=== PATIENT | female | born 1940 | race Caucasian/White ===

== ENCOUNTER 2016-10-12 12:24 | Observation (INO) ==
--- NOTE | 2016-10-12 12:53 | Emergency Department Note ---
Disposition Clinical Impression: Compression fracture Disposition: Admitted As Inpatient Condition: Fair Referrals: Florinda Falk MD [Primary Care Provider] - Forms: ED Satisfaction Letter Time of Disposition: 13:56 Back Pain HPI - General Chief Complaint: ED Back Pain/Injury Stated Complaint: back pain Time Seen by Provider: 10/12/16 12:45 Source: patient Mode of arrival: ambulatory Limitations: no limitations Nursing Notes Reviewed: Yes Vital Signs Reviewed: Yes - History of Present Illness HPI Narrative: Patient seen yesterday at [facility] diagnosed with a compression fracture went home now is having increasing pain as result returns to our ER today for evaluation unclear whether patient filled her medication prescription for pain management or not is numbness tingling weakness loss of bowel or bladder control Pt Subjective Complaint: back pain Onset (ago): day(s) Duration: constant Similar Symptoms Previously: Yes Location: thoracic spine Pain Severity: severe Pain Scale: 10 Quality: aching Radiation: none Improves with: none Worsens with: movement, sitting upright, walking, deep breaths/cough Associated symptoms: Reports: difficulty walking. Denies: numbness, weakness, incontinence of bowel/bladder, fever, chills, abdominal pain, dysuria, hematuria - Related Data Home Medications Medication Instructions Recorded Confirmed Aspirin [Lo-Dose Aspirin EC] 81 mg PO DAILY 09/26/15 10/12/16 Atorvastatin Calcium [Lipitor] 40 mg PO DAILY 09/26/15 10/12/16 Clopidogrel [Plavix] 75 mg PO DAILY 09/26/15 10/12/16 Docusate Sodium [Dok] 100 mg PO DAILY 09/26/15 10/12/16 LORazepam [Lorazepam] 2 mg PO TID 09/26/15 10/12/16 Oxygen 2 l NS HS 09/26/15 10/12/16 BuPROPion [Wellbutrin] 75 mg PO DAILY 10/12/16 10/12/16 Dicyclomine [Bentyl] 10 mg PO TID 10/12/16 10/12/16 Furosemide [Lasix] 20 mg PO DAILY 10/12/16 10/12/16 Losartan [Cozaar] 50 mg PO BID 10/12/16 10/12/16 Previous Rx's Medication Instructions Recorded Carvedilol [Coreg] 6.25 mg PO BIDWM #60 tablet 07/26/16 Acetaminophen [Tylenol Arthritis] 650 mg PO Q4-6H PRN #20 tablet.er 10/11/16 Allergies Allergy/AdvReac Type Severity Reaction Status Date / Time aspirin Allergy See Verified 06/05/16 14:40 Comments atenolol Allergy See Verified 06/05/16 14:40 Comments Penicillins Allergy Swelling Verified 11/16/14 13:24 of Lip/Tongue/Throat tramadol Allergy See Verified 06/05/16 14:40 Comments acetaminophen [From Vicodin] AdvReac Nausea Verified 11/16/14 13:24 diazepam [From Valium] AdvReac Nausea Verified 11/16/14 13:24 hydrocodone [From Vicodin] AdvReac Nausea Verified 11/16/14 13:24 All systems ED: reviewed and negative except as stated. Review of Systems: As Per HPI Constitutional: Denies: fever, chills, weakness Eyes: Denies: eye pain ENT ED: Denies: ear pain Cardiovascular: Denies: chest pain Respiratory: Denies: cough Gastrointestinal: Denies: abdominal pain Genitourinary: Denies: urgency, dysuria Musculoskeletal: Reports: back pain Integumentary: Denies: rash, abrasion Neurological: Denies: headache Psychiatric: Denies: anxiety Endocrine: Denies: fatigue Hematological/Lymphatic: Denies: easy bleeding Allergic/Immunologic: Denies: facial swelling Past Medical History - Past Medical History Attestation: Yes The following information was validated with the patient. Source: patient, old records reviewed, nursing notes reviewed Medical history: Reports: asthma, CHF, COPD, hypertension Surgical history: Reports: , other (EGD. Colonoscopy.) Psychiatric history: Reports: anxiety, depression ORE FIELDER history: Reports: no ORE FIELDER history - Social History Smoking Status: Former smoker Smokeless Tobacco Status: No Alcohol use: Reports: none Drug use: Reports: none Physical Exam - General Limitations: no limitations General appearance: alert, in no apparent distress, anxious - Head Head exam: atraumatic, normocephalic, normal inspection - Eye Eye exam: Present: normal appearance, PERRL, EOMI - ENT ENT exam: normal exam, normal oropharynx, mucous membranes moist, normal external ear exam - Neck Neck exam: Present: normal inspection, full ROM, trachea midline - Chest Chest inspection: Present: normal inspection, symmetric chest wall rise - Respiratory Respiratory exam: Present: normal lung sounds bilaterally - Cardiovascular Cardiovascular exam: Present: regular rate, normal rhythm, normal heart sounds - Abdominal Exam Abdominal exam: Present: Non-Tender, normal bowel sounds. Absent: mass, pulsatile mass - Expanded Upper Extremity Exam Shoulder exam: Present: normal inspection, full ROM Arm exam: Present: normal inspection, full ROM Elbow exam: Present: normal inspection, full ROM Forearm/Wrist exam: Present: normal inspection, full ROM Hand exam: Present: normal inspection, full ROM Vascular exam: Normal: capillary refill, radial pulse - Expanded Lower Extremity Exam Hip/Pelvis exam: Present: normal inspection, full ROM Upper leg exam: Present: normal inspection, full ROM Knee exam: Present: normal inspection, full ROM Lower leg exam: Present: normal inspection, full ROM Ankle exam: Present: normal inspection, full ROM Foot/toe exam: Present: normal inspection, full ROM Neurovascular/Tendon exam: Present: normal capillary refill, normal fine/light touch. Absent: motor deficit, sensory deficit, tendon deficit Gait: unable to bear weight - Back Exam Back exam: Present: normal inspection, tenderness, muscle spasm, vertebral tenderness Back 1 view image: 1 - pain - Neurological Exam Neurological exam: Present: alert, oriented X3, CN II-XII intact - Psychiatric Psychiatric exam: Present: normal affect, normal mood, agitated (due to pain) - Skin Skin exam: Present: warm, dry, intact, normal color Course Course Narrative: Seen and examined CT performed as a result patient will be admitted because of intractable pain transfered to [facility] Vital Signs Temperature 98.4 F 10/12/16 12:28 Pulse Rate 69 10/12/16 12:28 Respiratory Rate 16 10/12/16 12:28 Blood Pressure 167/97 10/12/16 12:28 O2 Sat by Pulse Oximetry 98 10/12/16 12:28 Temperature 98.4 F 10/12/16 12:28 Pulse Rate 69 10/12/16 12:28 Respiratory Rate 16 10/12/16 12:28 Blood Pressure 167/97 10/12/16 12:28 O2 Sat by Pulse Oximetry 98 10/12/16 12:28 Oxygen Delivery Oxygen Delivery Nasal Cannula Back Pain/Injury - Differential Diagnosis Differential Diagnosis: Likely: lumbar radiculopathy, strain of lumbar region - Medical Records Medical records reviewed: Yes I reviewed the patient's medical records. - Radiology Data Radiology results reviewed: Yes I reviewed the patient's radiology results. ITS Impressions Thoracic Spine CT 10/12/16 12:44 IMPRESSION: No acute abnormality of the thoracic spine. Unchanged compression fractures of T8 and L1. D/ / Lenny Negro MD / Lenny Negro MD Interpreting Provider: Lenny Negro MD Critical Care Time Critical Care Time: No
[2016-10-12] MEDS ORDERED: Ondansetron 4 MG/2 ML VIAL IVP ONE (13:54)
[2016-10-12] MEDS ORDERED: *HR* HYDROmorphone (PF) 1 MG/ML SYRINGE IVP ONE (13:54)
[2016-10-12] MEDS ORDERED: Orphenadrine 60 MG/2 ML VIAL IM ONE (13:54)
[2016-10-12] MEDS ORDERED: *HR* HYDROmorphone (PF) 1 MG/ML SYRINGE IVP PRN ×2 (15:20→17:13)
[2016-10-12] MEDS ORDERED: Ondansetron 4 MG/2 ML VIAL IVP PRN (15:20)
[2016-10-12] MEDS ORDERED: Naloxone 0.4 MG/ML INJ IVP PRN (15:20)
[2016-10-12] MEDS ORDERED: Acetaminophen 325 MG TABLET PO PRN (15:20)
[2016-10-12 15:49] LABS: Basophils % 0.5 %; Eosinophils # 0.1 K/mcL (0.0-0.6); Eosinophils % 1.8 %; Hematocrit 33.5 % (35.3-44.9); Hemoglobin 11.2 g/dL (11.5-15.4); Immature Granulocytes % 0.2 % (0-4); Lymphocytes # 1.1 K/mcL (0.6-4.6); Lymphocytes % 19.7 %; Mean Corpuscular HGB Conc 33.4 g/dL (31.6-35.5); Mean Corpuscular Volume 89.8 fL (83.0-100.0); Mean Platelet Volume 9.4 fL (9.4-12.4); Monocytes # 0.4 K/mcL (0.0-1.3); Monocytes % 6.9 %; Platelet Count 122 K/mcL (140-400); Red Blood Count 3.73 M/mcL (3.82-4.97); Red Cell Distribution Width 12.1 % (11.5-14.5); Segmented Neutrophils % 70.9 %
[2016-10-12 15:50] LABS: INR 1.2; Prothrombin Time 12.6 Seconds (9.4-12.1)
[2016-10-12 15:59] LABS: BUN/Creatinine Ratio 14 (6-26); Blood Urea Nitrogen 11 mg/dL (7-20); Calcium 9.1 mg/dL (8.6-10.8); Carbon Dioxide 32 mEq/L (19-29); Chloride 102 mEq/L (98-109); Glucose 88 mg/dL (70-99); Osmolality,Calculated 293 (280-300); Sodium 142 mEq/L (136-145); eGFR For African Americans > 60 (> 60); eGFR For Non-African Americans > 60 (> 60)
[2016-10-12] MEDS: *HR* LORazepam 1 MG TABLET PO SCH ×2 (16:19→19:33)
--- NOTE | 2016-10-12 17:23 | Internal Med History&Physical ---
Date of Encounter: 10/12/16 Time of Encounter: 16:35 Assessment and Plan (1) Thoracic back pain Current visit: No Status: Acute She will be given oral and topical analgesics with muscle relaxers. Further workup will be done as needed. Qualifiers: Chronicity: acute Back pain laterality: bilateral Qualified Code(s): M54.6 - Pain in thoracic spine Internal Medicine - H&P: HPI Chief complaint: Back pain Admitted From: Home Plans for Post Hospital Care: Home History of present illness: Ms. Hill is a 76 year old female who came to emergency room stating she had worsening back pain onset earlier the previous day. She states the pain occurred when she was lifting a bucket of water. There was no significant radiation. She went to [facility] emergency room was treated and released after thoracic spine x-ray showed no acute changes. She states Tylenol did not significantly lessen the pain. She came to [facility] emergency room and CT scan of the thoracic spine was done and showed stable old compression fractures of T8 and L1. It was felt she deserved admission for pain management. She denies previous similar episodes of pain. 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 She denies significant arthritis gout other bone joint or muscle disorders. Past Med Surg Social Fam HX - Past Medical History Medical history: asthma, CHF, COPD, hypertension Psychiatric history: anxiety, depression - Past Surgical History Surgical History: , other - Social History Smoking Status: Former smoker Smokeless Tobacco Status: No Alcohol use: none Drug use: none - Family History Mother Living Status: Hx Family Cardiac Disorders: Yes Hx Family Cancer: Yes Father Living Status: Hx Family Cardiac Disorders: Yes Hx Family GI Disorders: Yes Internal Medicine - H&P: Meds Aspirin [Lo-Dose Aspirin EC] 81 mg PO DAILY 09/26/15 [History] Atorvastatin Calcium [Lipitor] 40 mg PO DAILY 09/26/15 [History] Clopidogrel [Plavix] 75 mg PO DAILY 09/26/15 [History] Docusate Sodium [Dok] 100 mg PO DAILY 09/26/15 [History] LORazepam [Lorazepam] 2 mg PO TID 09/26/15 [History] Oxygen 2 l NS HS 09/26/15 [History] Carvedilol [Coreg] 6.25 mg PO BIDWM #60 tablet 09/27/15 [Rx] Acetaminophen [Tylenol Arthritis] 650 mg PO Q4-6H PRN #20 tablet.er 10/11/16 [Rx ] BuPROPion [Wellbutrin] 75 mg PO DAILY 10/12/16 [History] Dicyclomine [Bentyl] 10 mg PO TID 10/12/16 [History] Furosemide [Lasix] 20 mg PO DAILY 10/12/16 [History] Losartan [Cozaar] 50 mg PO BID 10/12/16 [History] Allergies aspirin Allergy (Verified 06/05/16 14:40) See Comments atenolol Allergy (Verified 06/05/16 14:40) See Comments Penicillins Allergy (Verified 11/16/14 13:24) Swelling of Lip/Tongue/Throat tramadol Allergy (Verified 06/05/16 14:40) See Comments acetaminophen [From Vicodin] Adverse Reaction (Verified 11/16/14 13:24) Nausea diazepam [From Valium] Adverse Reaction (Verified 11/16/14 13:24) Nausea hydrocodone [From Vicodin] Adverse Reaction (Verified 11/16/14 13:24) Nausea All Systems PM: A 10-system review of systems was performed and is negative for pertinent findings except as documented above in the HPI. Review of systems: Gen.: She states her weight has been stable past few months Cardiovascular: She has history of hypertension but denies NC heart failure angina DVT or pulmonary embolus Respiratory: She smoked from age [age]. She claims diagnoses of COPD/emphysema and asthma. She uses oxygen at bedtime and when necessary during the daytime GI: She has IBS. She denies disorders of her liver gallbladder or exocrine pancreas : She denies hematuria dysuria or kidney stones Neurologic: She states she had a stroke in the past but only affected her left forehead/eyebrow movement. She denies seizures Endocrine: She has hyperlipidemia but denies diabetes or thyroid disease Hematology/oncology: she denies blood disorders cancers or anemia Psychiatric: She has anxiety and depression Musk skeletal: As per history of present illness - Constitutional Vitals: Temp Pulse Resp BP Pulse Ox 97.9 F 60 16 174/78 98 10/12/16 15:20 10/12/16 15:20 10/12/16 15:20 10/12/16 15:20 10/12/16 15:20 Exam: Gen.: She is well-developed well-nourished female appears in no acute distress at present time HEENT: Head is atraumatic and normocephalic. Eyes: EOMI. There is no scleral icterus. Mouth: Mucosa is moist. Neck: Supple and nontender. There is no thyromegaly or adenopathy noted. Heart: Regular without murmurs gallops or ectopics Lungs: No wheezes or crackles are heard Abdomen: Soft and nontender. No masses or guarding are noted. Extremities: There is no cyanosis or edema of her legs. 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 Right hand shows DJD changes. Neurologic: Mental status: She is talkative and a good historian. Cranial nerves: Smile is symmetric. Forehead wrinkles bilaterally. Tongue protrudes midline. EOMI. Motor: There is no pronator drift. Cerebellar: Finger to nose is intact bilaterally. Skin: Warm and dry Internal Med - H&P Results - Labs CBC & Chem 7: 10/12/16 15:32 10/12/16 15:32 Labs: Short CBC 10/12/16 Range/Units 15:32 WBC 5.6 (4.3-11.1) K/mcL Hgb 11.2 L (11.5-15.4) g/dL Hct 33.5 L (35.3-44.9) % Plt Count 122 L (140-400) K/mcL Neutrophils # 4.0 (1.6-8.9) K/mcL BMP 10/12/16 15:32 Sodium 142 Potassium 4.0 Chloride 102 Carbon Dioxide 32 H BUN 11 Creatinine 0.81 Glucose 88 Calcium 9.1
[2016-10-12] MEDS: Methyl Salicylate/Menthol 28 GM TUBE TP SCH (19:29)
[2016-10-12] MEDS: Baclofen 10 MG TABLET PO SCH (19:33)
[2016-10-12] MEDS ORDERED: NON-FORMULARY MEDICATION 1 EACH EACH (Oxygen [Oxygen] 2 L) NS SCH (21:00)
[2016-10-13] MEDS: Baclofen 10 MG TABLET PO SCH ×4 (02:35→22:33)
[2016-10-13] MEDS: *HR* LORazepam 1 MG TABLET PO SCH ×4 (08:07→22:32)
[2016-10-13] MEDS: Furosemide 20 MG TABLET PO SCH (08:10)
[2016-10-13] MEDS: Methyl Salicylate/Menthol 28 GM TUBE TP SCH ×2 (08:28→22:35)
--- NOTE | 2016-10-13 08:59 | Discharge Summary ---
Date of Encounter: 10/13/16 Time of Encounter: 08:50 - Discharge Diagnosis (1) Thoracic back pain Priority: Primary Status: Acute Qualifiers: Chronicity: acute Back pain laterality: bilateral Qualified Code(s): M54.6 - Pain in thoracic spine - Discharge Medications Prescriptions: Baclofen [Lioresal] 10 mg PO TID #15 tab HYDROcodone/Acet 5/325 mg [Salix 5-325 mg] 1 tab PO Q4H PRN #12 tab PRN Reason: Pain Lidocaine Patch [Lidoderm 5% patch] 1 each TP DAILY #5 Naproxen [Naprosyn] 500 mg PO BIDWM #10 tab Home Medications: Aspirin [Lo-Dose Aspirin EC] 81 mg PO DAILY 09/26/15 [History] Atorvastatin Calcium [Lipitor] 40 mg PO DAILY 09/26/15 [History] Clopidogrel [Plavix] 75 mg PO DAILY 09/26/15 [History] Docusate Sodium [Dok] 100 mg PO DAILY 09/26/15 [History] LORazepam [Lorazepam] 2 mg PO TID 09/26/15 [History] Oxygen 2 l NS HS 09/26/15 [History] Carvedilol [Coreg] 6.25 mg PO BIDWM #60 tablet 09/27/15 [Rx] Acetaminophen [Tylenol Arthritis] 650 mg PO Q4-6H PRN #20 tablet.er 10/11/16 [Rx ] BuPROPion [Wellbutrin] 75 mg PO DAILY 10/12/16 [History] Dicyclomine [Bentyl] 10 mg PO TID 10/12/16 [History] Furosemide [Lasix] 20 mg PO DAILY 10/12/16 [History] Losartan [Cozaar] 50 mg PO BID 10/12/16 [History] Baclofen [Lioresal] 10 mg PO TID #15 tab 10/13/16 [Rx] HYDROcodone/Acet 5/325 mg [Salix 5-325 mg] 1 tab PO Q4H PRN #12 tab 10/13/16 [Rx ] Lidocaine Patch [Lidoderm 5% patch] 1 each TP DAILY #5 10/13/16 [Rx] Methyl Salicylate/Menthol [Bengay] 1 appl TP BID 10/13/16 [Rx] Naproxen [Naprosyn] 500 mg PO BIDWM #10 tab 10/13/16 [Rx] Allergies/Adverse Reactions: Allergies aspirin Allergy (Verified 06/05/16 14:40) See Comments atenolol Allergy (Verified 06/05/16 14:40) See Comments Penicillins Allergy (Verified 11/16/14 13:24) Swelling of Lip/Tongue/Throat tramadol Allergy (Verified 06/05/16 14:40) See Comments acetaminophen [From Vicodin] Adverse Reaction (Verified 11/16/14 13:24) Nausea diazepam [From Valium] Adverse Reaction (Verified 11/16/14 13:24) Nausea hydrocodone [From Vicodin] Adverse Reaction (Verified 11/16/14 13:24) Nausea Date of admission: 10/12/16 14:13 Primary care physician: Florinda Falk, - Patient Status Disposition: Home, Self-Care Condition: Fair Overall status at discharge: patient is progressing back to baseline - Discharge Instructions Follow Up With: Florinda Falk MD [Primary Care Provider] - 1 week - Diet and Activity Activity: resume usual activities as tolerated Diet: advance to your usual diet Hospital course: Ms. Hill is a 76 year old female who came to emergency room stating she had worsening back pain onset earlier the previous day. She states the pain occurred when she was lifting a bucket of water. There was no significant radiation. She went to [facility] emergency room was treated and released after thoracic spine x-ray showed no acute changes. She states Tylenol did not significantly lessen the pain. She came to [facility] emergency room and CT scan of the thoracic spine was done and showed stable old compression fractures of T8 and L1. It was felt she deserved admission for pain management. Initial orders were written by the emergency room physician. I saw her on October 12 and performed a history and physical. She was ordered scheduled baclofen and Naprosyn. BenGay and Lidoderm were applied topically. She had slight improvement in the pain and on October 12 I felt she was stable for discharge home. She states she did not really have an allergy to hydrocodone so I will prescribe Salix 5/325 when necessary. She will follow with her PCP Dr. Falk within 1 week. - Time Spent with Patient Total time spent providing and/or coordinating discharge services: - Constitutional Vitals: Temp Pulse Resp BP Pulse Ox 98.0 F 71 20 155/82 99 10/13/16 08:00 10/13/16 08:00 10/13/16 08:00 10/13/16 08:00 10/13/16 08:04
[2016-10-13] MEDS ORDERED: Aspirin Enteric Coated 81 MG Tablet PO SCH (09:00)
[2016-10-13] MEDS ORDERED: *HR* HYDROcodone/Acet 5/325 mg TABLET PO ONE (09:03)
[2016-10-13] MEDS: Acetaminophen 325 MG TABLET PO SCH (17:47)
[2016-10-13] MEDS ORDERED: *HR* FentaNYL PATCH 12 MCG PATCH TD SCH (18:00)
[2016-10-14] MEDS: Acetaminophen 325 MG TABLET PO SCH ×2 (03:59→06:36)
[2016-10-14] MEDS ORDERED: amLODIPine 5 MG TABLET PO ONE (04:20)
[2016-10-14 09:08] VITALS: BP 136/78
[2016-10-14] MEDS: *HR* LORazepam 1 MG TABLET PO SCH (09:09)
[2016-10-14] MEDS: Furosemide 20 MG TABLET PO SCH (09:10)
[2016-10-14] MEDS: Baclofen 10 MG TABLET PO SCH (09:10)
[2016-10-14] MEDS: Methyl Salicylate/Menthol 28 GM TUBE TP SCH (09:15)
--- NOTE | 2016-10-14 09:41 | Physician Discharge Referral ---
Home Health/Hosp Referral Info Transfer to: Home Health Attending Provider: Davis Provider in Charge Post Discharge: PCP (Florinda Falk M.D.) - Diagnosis (1) Thoracic back pain Priority: Primary Status: Acute - Respiratory Orders Smoking Cessation: Smoking cessation has been advised. For more information, call the [place] Tobacco Quit Line at 8-280-DQGB-NOW. - Diet/Nutrition Diet/Nutrition Orders: Regular - Activity Activity Orders: Up ad sun - Services Needed Following services are medically necessary services: Nursing, Home Health Aide, Physical Therapy, Occupational Therapy - Transfer Medications Prescriptions: Baclofen [Lioresal] 10 mg PO TID #15 tab HYDROcodone/Acet 5/325 mg [Brimson 5-325 mg] 1 tab PO Q4H PRN #12 tab PRN Reason: Pain Lidocaine Patch [Lidoderm 5% patch] 1 each TP DAILY #5 Naproxen [Naprosyn] 500 mg PO BIDWM #10 tab Home Medications: Aspirin [Lo-Dose Aspirin EC] 81 mg PO DAILY 09/26/15 [History] Atorvastatin Calcium [Lipitor] 40 mg PO DAILY 09/26/15 [History] Clopidogrel [Plavix] 75 mg PO DAILY 09/26/15 [History] Docusate Sodium [Dok] 100 mg PO DAILY 09/26/15 [History] LORazepam [Lorazepam] 2 mg PO TID 09/26/15 [History] Oxygen 2 l NS HS 09/26/15 [History] Carvedilol [Coreg] 6.25 mg PO BIDWM #60 tablet 09/27/15 [Rx] Acetaminophen [Tylenol Arthritis] 650 mg PO Q4-6H PRN #20 tablet.er 10/11/16 [Rx ] BuPROPion [Wellbutrin] 75 mg PO DAILY 10/12/16 [History] Dicyclomine [Bentyl] 10 mg PO TID 10/12/16 [History] Furosemide [Lasix] 20 mg PO DAILY 10/12/16 [History] Losartan [Cozaar] 50 mg PO BID 10/12/16 [History] Baclofen [Lioresal] 10 mg PO TID #15 tab 10/13/16 [Rx] HYDROcodone/Acet 5/325 mg [Brimson 5-325 mg] 1 tab PO Q4H PRN #12 tab 10/13/16 [Rx ] Lidocaine Patch [Lidoderm 5% patch] 1 each TP DAILY #5 10/13/16 [Rx] Methyl Salicylate/Menthol [Bengay] 1 appl TP BID 10/13/16 [Rx] Naproxen [Naprosyn] 500 mg PO BIDWM #10 tab 10/13/16 [Rx] Allergies/Adverse Reactions: Allergies aspirin Allergy (Verified 06/05/16 14:40) See Comments atenolol Allergy (Verified 06/05/16 14:40) See Comments Penicillins Allergy (Verified 11/16/14 13:24) Swelling of Lip/Tongue/Throat tramadol Allergy (Verified 06/05/16 14:40) See Comments acetaminophen [From Vicodin] Adverse Reaction (Verified 11/16/14 13:24) Nausea diazepam [From Valium] Adverse Reaction (Verified 11/16/14 13:24) Nausea hydrocodone [From Vicodin] Adverse Reaction (Verified 11/16/14 13:24) Nausea Certification: Further, I certify that my clinical findings support that this patient is homebound (i.e. absences from home require considerable and taxing effort and are for medical reasons or [employer] services or infrequently or short duration when for other reasons) because: Homebound Reason: Leaving home requires considerable and taxing effort due to condition (Severe back pain) Attestation: My signature below is to certify that this patient is under my care and that I, or nurse practitioner, or a physician's pharmaceutical assistant working with me, has a face-to -face encounter with this patient.
== END 2016-10-14 13:15 | disposition home health service (06) ==
LOC: EMEROOPIK 12:24 → INPPIK 12:24
PROVIDERS: ADMIT Internal Medicine; ATTEND Internal Medicine

== ENCOUNTER 2018-04-17 20:01 | Inpatient (IN) ==
[2018-04-17 20:38] LABS: Basophils % 0.3 %; Eosinophils # 0.1 K/mcL (0.0-0.6); Eosinophils % 0.8 %; Hematocrit 32.8 % (35.3-44.9); Hemoglobin 10.5 g/dL (11.5-15.4); Immature Granulocytes % 0.4 % (0-4); Lymphocytes # 0.5 K/mcL (0.6-4.6); Lymphocytes % 6.5 %; Mean Corpuscular Hemoglobin 29.2 pg (28.0-33.3); Mean Corpuscular Volume 91.1 fL (83.0-100.0); Mean Platelet Volume 9.7 fL (9.4-12.4); Monocytes # 0.4 K/mcL (0.0-1.3); Monocytes % 5.2 %; Neutrophils # 6.9 K/mcL (1.6-8.9); Platelet Count 158 K/mcL (140-400); Red Cell Distribution Width 12.8 % (11.5-14.5); Segmented Neutrophils % 86.8 %
[2018-04-17 20:48] LABS: INR 1.2; Prothrombin Time 13.4 Seconds (9.4-12.1)
[2018-04-17 20:50] LABS: Activated Partial Thrombo Time 32.6 Seconds (26.0-36.0)
[2018-04-17 20:57] LABS: Alanine Aminotransferase 7 Units/L (7-52); Albumin 3.5 g/dL (3.5-5.7); Albumin/Globulin Ratio 1.5 (1.1-2.2); Alkaline Phosphatase 64 Units/L (34-104); Aspartate Amino Transferase 11 Units/L (13-39); BUN/Creatinine Ratio 14 (6-26); Bilirubin,Total 0.7 mg/dL (0.3-1.0); Blood Urea Nitrogen 14 mg/dL (8-23); Calcium 8.6 mg/dL (8.6-10.3); Carbon Dioxide 28 mEq/L (23-29); Chloride 103 mEq/L (98-107); Globulin 2.4 g/dL (2.4-3.5); Glucose 118 mg/dL (70-105); Osmolality,Calculated 290 (280-300); Potassium 3.6 mEq/L (3.5-5.1); Sodium 139 mEq/L (136-145); Total Protein 5.9 g/dL (6.4-8.9); eGFR For Non-African Americans 55 (> 60)
[2018-04-17] MEDS ORDERED: Levofloxacin 750 MG/150 ML 750 MG/150 ML BAG IVPB ONE (21:34)
--- NOTE | 2018-04-17 21:34 | Emergency Department Note ---
Disposition Clinical Impression: Congestive heart failure, Community acquired pneumonia, COPD (chronic obstructive pulmonary disease) Disposition: Admitted As Inpatient Condition: Fair Referrals: NONE,PCP [Non-Partnered Physician] - Time of Disposition: 22:23 SOB HPI - General Chief Complaint: ED Shortness of Breath/Dyspnea Stated Complaint: Dyspnea onset 3-4 days, worse today Time Seen by Provider: 04/17/18 20:05 Source: patient Mode of arrival: ambulatory Limitations: no limitations Nursing Notes Reviewed: Yes Vital Signs Reviewed: Yes - History of Present Illness 77-year-old who presents to the emergency room is having increasing shortness of breath weakness tiredness having trouble getting around in the house she denies any blurred vision double vision loss vision she's had near-syncope she's had no rash other than she's had no focal lesions she denies any fevers or chills as far she can tell she Center hearts been racing she is been seen by the sleeping room cleaner who said she she's has a pacer defibrillator but she doesn't understand what those are she denies diarrhea melena hematochezia hematemesis numbness tingling weakness focally noted that is more global she denies any abdominal pain or discomfort all systems have been reviewed and are otherwise negative Pt Subjective Complaint: shortness of breath Onset (ago): day(s) Consistency/Duration: constant Improves with: nothing Worsens with: nothing Known history of: COPD, congestive heart failure Associated symptoms: Reports: diaphoresis. Denies: chest pain, pain with inspiration, fever, cough, wheezing, sputum production, orthopnea, lower extremity pain, polyuria, polydipsia, parasthesias, palpitations, hemoptysis, nausea/vomiting, syncope, abdominal pain, rash, sense of impending doom Treatment prior to arrival: none - Related Data Home Medications Medication Instructions Recorded Confirmed Aspirin [Lo-Dose Aspirin EC] 81 mg PO DAILY 09/26/15 04/17/18 Atorvastatin Calcium [Lipitor] 40 mg PO DAILY 09/26/15 04/17/18 Docusate Sodium [Dok] 100 mg PO DAILY 09/26/15 04/17/18 LORazepam [Lorazepam] 2 mg PO TID 09/26/15 04/17/18 Oxygen 2 l NS HS 09/26/15 04/17/18 BuPROPion [Wellbutrin] 75 mg PO DAILY 10/12/16 04/17/18 Albuterol Sulfate [Ventolin Hfa] 2 puff IH Q6H PRN 03/07/18 04/17/18 Budesonide/Formoterol 160/4.5 2 puff IH BIDR 04/17/18 04/17/18 [Symbicort 160/4.5] Previous Rx's Medication Instructions Recorded Acetaminophen [Tylenol Arthritis] 650 mg PO Q4-6H PRN #20 tablet.er 10/11/16 Methyl Salicylate/Menthol [Bengay] 1 appl TP BID 10/13/16 Fluticasone Propionate Nasal 1 - 2 spray NS DAILY PRN #1 bottle 12/20/17 [Flonase] Metoprolol XL (24 HR) Succ [Toprol 12.5 mg PO DAILY #30 tab.er.24h 03/14/18 Xl] Allergies Allergy/AdvReac Type Severity Reaction Status Date / Time atenolol Allergy See Verified 12/20/17 14:18 Comments Penicillins Allergy Swelling Verified 12/20/17 14:18 of Lip/Tongue/Throat tramadol Allergy See Verified 12/20/17 14:18 Comments acetaminophen [From Vicodin] AdvReac Nausea Verified 12/20/17 14:18 diazepam [From Valium] AdvReac Nausea Verified 12/20/17 14:18 hydrocodone [From Vicodin] AdvReac Nausea Verified 12/20/17 14:18 All systems ED: reviewed and negative except as stated. Review of Systems: As Per HPI Constitutional: Reports: weakness. Denies: fever, chills Eyes: Denies: eye pain, eye discharge, vision change ENT ED: Denies: ear pain, throat pain Cardiovascular: Reports: palpitations, dyspnea on exertion. Denies: chest pain, syncope, paroxysmal nocturnal dyspnea Respiratory: Reports: dyspnea, wheezes, sputum production Gastrointestinal: Denies: abdominal pain, nausea Genitourinary: Denies: urgency, dysuria, frequency Musculoskeletal: Denies: back pain, neck pain Integumentary: Denies: rash, abrasion Neurological: Denies: headache Psychiatric: Denies: anxiety Endocrine: Denies: fatigue Hematological/Lymphatic: Denies: easy bleeding Allergic/Immunologic: Denies: facial swelling Past Medical History - Past Medical History Attestation: Yes The following information was validated with the patient. Source: patient, old records reviewed, nursing notes reviewed Medical history: Reports: atrial fibrillation, COPD, CVA, GERD, hypertension Surgical history: Reports: , other Psychiatric history: Reports: anxiety, depression [employer] history: Reports: no [employer] history - Social History Smoking Status: Current every day smoker Smokeless Tobacco Status: No Alcohol use: Reports: none Drug use: Reports: none Physical Exam - General Limitations: no limitations General appearance: alert, in no apparent distress, anxious - Head Head exam: atraumatic, normocephalic, normal inspection - Eye Eye exam: Present: normal appearance, PERRL, EOMI - ENT ENT exam: normal exam, normal oropharynx, mucous membranes moist, TM's normal bilaterally, normal external ear exam - Neck Neck exam: Present: normal inspection, full ROM, trachea midline - Chest Chest inspection: Present: normal inspection, symmetric chest wall rise - Respiratory Respiratory exam: Present: normal lung sounds bilaterally - Cardiovascular Cardiovascular exam: Present: tachycardia, irregular rhythm, normal heart sounds - Abdominal Exam Abdominal exam: Present: soft, Non-Tender, normal bowel sounds. Absent: mass, pulsatile mass - Extremities Exam Extremities exam: Present: normal inspection, full ROM, normal capillary refill. Absent: tenderness, pedal edema, joint swelling, calf tenderness - Expanded Lower Extremity Exam Neurovascular/Tendon exam: Present: normal capillary refill, normal fine/light touch Gait: observed and normal - Back Exam Back exam: Present: normal inspection, full ROM. Absent: muscle spasm - Neurological Exam Neurological exam: Present: alert, oriented X3, CN II-XII intact, normal gait - Psychiatric Psychiatric exam: Present: normal affect, normal mood - Skin Skin exam: Present: warm, dry, intact, normal color Course Course Narrative: She's had problems in the past which they have questioned whether to give her pacemaker because of bradycardia she describes so that they were giving her a dual-chamber pacemaker or a pacer defibrillator as result Shortness of Breath/Dyspnea - Differential Diagnosis Likely: congestive heart failure, pneumonia - Medical Records Medical records reviewed: Yes I reviewed the patient's medical records. - Lab Data Lab results reviewed: Yes I reviewed the patient's lab results. - Radiology Data Radiology results reviewed: Yes I reviewed the patient's radiology results. ITS Impressions Chest X-Ray 04/17/18 20:18 IMPRESSION: Bilateral lower lobe airspace opacification suggesting bilateral lower lobe pneumonia D/ / Rico Welch MD / Rico Welch MD Interpreting Provider: Rico Welch MD - EKG Data EKG attestation: Yes I reviewed and interpreted this EKG. EKG results narrative: Atrial fib with RVR sight prolongation in QT heart rate 1.1. 35 QT 351 axis -46 Critical Care Time Critical Care Time: Yes Attestation: 35 minutes high probability clinically significant life-threatening deterioration as result patient being in atrial fib with RVR which unfortunately has put her into congestive heart failure with an overlying pneumonia as result though this does increase her risk of comorbidities complications Davis and agreed for admission
[2018-04-17] MEDS ORDERED: Bumetanide 1 MG/4 ML VIAL IVP ONE (21:38)
[2018-04-17 21:47] LABS: Troponin I 0.07 ng/mL (< 0.04)
[2018-04-17] MEDS ORDERED: *HR* Metoprolol 5 MG/5 ML VIAL IVP ONE (21:59)
[2018-04-17] MEDS ORDERED: Fluticasone Propionate Nasal 50 MCG/SPRAY BOTTLE NS PRN (23:03)
[2018-04-17] MEDS ORDERED: Naloxone 0.4 MG/ML INJ IVP PRN (23:03)
[2018-04-18] MEDS ORDERED: Acetaminophen 325 MG TABLET PO PRN (01:14)
[2018-04-18] MEDS: *HR* LORazepam 1 MG TABLET PO SCH ×3 (08:37→22:08)
[2018-04-18] MEDS: Aspirin 81 MG TAB.CHEW PO SCH (08:38)
[2018-04-18] MEDS: Bumetanide 1 MG/4 ML VIAL IVP SCH ×3 (08:38→15:26)
[2018-04-18] MEDS ORDERED: Metoprolol XL (24 HR) Succ 25 MG TAB.ER.24H PO SCH (09:00)
[2018-04-18] MEDS: Budesonide/Formoterol 160/4.5 1 PUFF INH IH SCH ×2 (09:05→21:37)
--- NOTE | 2018-04-18 13:41 | Internal Med History&Physical ---
Date of Encounter: 04/18/18 Time of Encounter: 13:10 Assessment and Plan (1) Community acquired pneumonia Current visit: Yes Status: Acute She was started on Levaquin in emergency room. Lactobacillus will be added. Qualifiers: Laterality: unspecified laterality Qualified Code(s): J18.9 - Pneumonia, unspecified organism (2) Congestive heart failure Current visit: Yes Status: Chronic Toprol-XL dose will be increased to 25 mg daily. IV Bumex has been ordered. She will be started on low-dose lisinopril. Qualifiers: Heart failure type: combined systolic and diastolic Heart failure chronicity: acute on chronic Qualified Code(s): I50.43 - Acute on chronic combined systolic (congestive) and diastolic (congestive) heart failure (3) Cardiomyopathy Current visit: No Status: Chronic As above Qualifiers: Cardiomyopathy type: other Qualified Code(s): I42.8 - Other cardiomyopathies (4) Anemia Current visit: Yes Status: Acute Anemia testing will be ordered in a.m. Qualifiers: Anemia type: unspecified type Qualified Code(s): D64.9 - Anemia, unspecified (5) COPD (chronic obstructive pulmonary disease) Current visit: Yes Status: Chronic Continue Symbicort with prn albuterol nebs. Pneumonia treatment as per above. Qualifiers: COPD type: unspecified COPD Qualified Code(s): J44.9 - Chronic obstructive pulmonary disease, unspecified Internal Medicine - H&P: HPI Chief complaint: Dyspnea, near syncope Admitted From: Emergency Dept Plans for Post Hospital Care: Home History of present illness: Ms. Hill is a 77 year old female who came to emergency room stating she had one week history of increasing dyspnea. She reports cough productive of white sputum. She denies significant pain. She states she had a near syncopal episode at home yesterday. She came to emergency room and was evaluated and was felt to have exacerbation of COPD with CHF and possible pneumonia. She was admitted to [facility] floor for ongoing care needs. Cardiovascular history is significant for hypertension. She claims she had an [place] in 2014. C 03/12/2018 showed LMCA free of disease, 25% stenosis in proximal LAD, 20% stenosis in mid LAD, 25% stenosis in mid RCA, and 65% stenosis in distal RCA. The circumflex and first marginal were free of disease. No intervention was done. Echocardiogram 03/09/2018 showed LVEF of 45%. There was indeterminate diastolic function reported. E/A ratio was 0.5. There was mild aortic regurgitation, mild tricuspid vegetation, mild pulmonic regurgitation, and mild to moderate mitral regurgitation. Interventricular septum and posterior wall thickness measurements was 0.88 and 0.5 cm respectively. She denies DVT or pulmonary embolus. Respiratory history significant for having smoked from age [age]. She claims diagnosis of COPD/emphysema and asthma. She uses oxygen 24/09. Past Med Surg Social Fam HX - Past Medical History Medical history: atrial fibrillation, COPD, CVA, GERD, hypertension Additional medical history: IBS, emphysema Psychiatric history: anxiety, depression - Past Surgical History Surgical History: , other Additional surgical history: Jaw fx - Social History Smoking Status: Current every day smoker Smokeless Tobacco Status: No Alcohol use: none Drug use: none - Family History Mother Living Status: Hx Family Cardiac Disorders: Yes Hx Family Cancer: Yes Father Living Status: Hx Family Cardiac Disorders: Yes Hx Family GI Disorders: Yes Internal Medicine - H&P: Meds Aspirin [Lo-Dose Aspirin EC] 81 mg PO DAILY 09/26/15 [History] Atorvastatin Calcium [Lipitor] 40 mg PO DAILY 09/26/15 [History] Docusate Sodium [Dok] 100 mg PO DAILY 09/26/15 [History] LORazepam [Lorazepam] 2 mg PO TID 09/26/15 [History] Oxygen 2 l NS HS 09/26/15 [History] Acetaminophen [Tylenol Arthritis] 650 mg PO Q4-6H PRN #20 tablet.er 10/11/16 [Rx] BuPROPion [Wellbutrin] 75 mg PO DAILY 10/12/16 [History] Methyl Salicylate/Menthol [Bengay] 1 appl TP BID 10/13/16 [Rx] Fluticasone Propionate Nasal [Flonase] 1 - 2 spray NS DAILY PRN #1 bottle 12/20/17 [Rx] Albuterol Sulfate [Ventolin Hfa] 2 puff IH Q6H PRN 03/07/18 [History] Metoprolol XL (24 HR) Succ [Toprol Xl] 12.5 mg PO DAILY #30 tab.er.24h 03/14/18 [Rx] Budesonide/Formoterol 160/4.5 [Symbicort 160/4.5] 2 puff IH BIDR 04/17/18 [History] Allergy/AdvReac Type Severity Reaction Status Date / Time atenolol Allergy See Verified 12/20/17 14:18 Comments Penicillins Allergy Swelling Verified 12/20/17 14:18 of Lip/Tongue/Throat tramadol Allergy See Verified 12/20/17 14:18 Comments acetaminophen [From Vicodin] AdvReac Nausea Verified 12/20/17 14:18 diazepam [From Valium] AdvReac Nausea Verified 12/20/17 14:18 hydrocodone [From Vicodin] AdvReac Nausea Verified 12/20/17 14:18 All Systems PM: A 10-system review of systems was performed and is negative for pertinent findings except as documented above in the HPI. Review of systems: Review of systems from her October 2016 [facility] hospitalization were reviewed and revised as below. Gen.: Her weight has increased from 60.594 kg on 10/13/2016 to 67.5 a 5 kg on admission now. Cardiovascular: As per history of present illness Respiratory: As per history of present illness GI: She has IBS. She denies disorders of her liver gallbladder or exocrine pancreas : She denies hematuria dysuria or kidney stones Neurologic: She states she had a stroke in the past but only affected her left forehead/eyebrow movement. 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 She has arthritis but denies gout or other bone joint or muscle disorders. - Constitutional Vitals: Temp Pulse Resp BP Pulse Ox 98.5 F 92 16 117/78 96 04/18/18 11:10 04/18/18 11:10 04/18/18 11:10 04/18/18 11:10 04/18/18 11:10 Exam: Gen.: She is a well-developed well-nourished female lying in bed who appears in minimal distress at present time. HEENT: Head is atraumatic and normocephalic. Eyes: EOMI. There is no scleral icterus. Mouth: Mucosa is moist. Neck: Supple and nontender. There is no thyromegaly or adenopathy noted. Heart: Regular without murmurs gallops or ectopics Lungs: No wheezes or crackles are heard. Abdomen: Soft and nontender. No masses or guarding are noted. Extremities: There is hypodactylia of all toes and of the third fourth and fifth fingers on the left hand. There is no edema or cyanosis. Neurologic: Mental status: She is talkative and a good historian. Cranial ner ves: Smile is symmetric. Forehead wrinkles bilaterally. Tongue protrudes midline. EOMI. Motor: There is no pronator drift. Cerebellar: Finger to nose is intact bilaterally. Skin: Warm and dry Internal Med - H&P Results - Labs CBC & Chem 7: 04/17/18 20:33 04/17/18 20:33 Labs: Short CBC 04/17/18 Range/Units 20:33 WBC 8.0 (4.3-11.1) K/mcL Hgb 10.5 L (11.5-15.4) g/dL Hct 32.8 L (35.3-44.9) % Plt Count 158 (140-400) K/mcL Neutrophils # 6.9 (1.6-8.9) K/mcL BMP 04/17/18 20:33 Sodium 139 Potassium 3.6 Chloride 103 Carbon Dioxide 28 BUN 14 Creatinine 0.98 Glucose 118 H Calcium 8.6 Cardiac Enzymes 04/17/18 04/18/18 04/18/18 Range/Units 20:33 02:48 08:22 Troponin I 0.07 H* 0.07 H* 0.08 H* (< 0.04) ng/mL Liver Function 04/17/18 Range/Units 20:33 Total Bilirubin 0.7 (0.3-1.0) mg/dL AST 11 L (13-39) Units/L ALT 7 (7-52) Units/L Alkaline Phosphatase 64 (34-104) Units/L Albumin 3.5 (3.5-5.7) g/dL - Impressions ITS Impressions Chest X-Ray 04/17/18 20:18 IMPRESSION: Bilateral lower lobe airspace opacification suggesting bilateral lower lobe pneumonia D/ / Rico Welch MD / Rico Welch MD Interpreting Provider: Rico Welch MD
[2018-04-18] MEDS ORDERED: Albuterol 2.5 MG/3 ML NEBULIZER IH PRN (13:52)
[2018-04-18] MEDS ORDERED: Metoprolol XL (24 HR) Succ 25 MG TAB.ER.24H PO ONE (14:00)
[2018-04-18] MEDS: Methyl Salicylate/Menthol 28 GM TUBE TP SCH ×2 (14:22→22:08)
[2018-04-18] MEDS ORDERED: NON-FORMULARY MEDICATION 1 EACH EACH (Oxygen [Oxygen] 2 L) NS SCH (21:00)
[2018-04-18] MEDS: Lactobacillus 1 EACH CAP.SPRINK PO SCH (22:08)
[2018-04-19 06:05] LABS: Basophils % 0.6 %; Eosinophils # 0.2 K/mcL (0.0-0.6); Eosinophils % 3.9 %; Hematocrit 32.1 % (35.3-44.9); Immature Granulocytes % 0.2 % (0-4); Lymphocytes # 1.2 K/mcL (0.6-4.6); Lymphocytes % 22.7 %; Mean Corpuscular HGB Conc 31.2 g/dL (31.6-35.5); Mean Corpuscular Hemoglobin 28.2 pg (28.0-33.3); Mean Corpuscular Volume 90.4 fL (83.0-100.0); Monocytes # 0.4 K/mcL (0.0-1.3); Monocytes % 7.9 %; Neutrophils # 3.5 K/mcL (1.6-8.9); Platelet Count 167 K/mcL (140-400); Red Blood Count 3.55 M/mcL (3.82-4.97); Red Cell Distribution Width 12.6 % (11.5-14.5); Segmented Neutrophils % 64.7 %
[2018-04-19 06:34] LABS: Calcium 8.4 mg/dL (8.6-10.3); Potassium 3.9 mEq/L (3.5-5.1)
[2018-04-19] MEDS: Budesonide/Formoterol 160/4.5 1 PUFF INH IH SCH ×2 (09:20→21:58)
[2018-04-19] MEDS: Lactobacillus 1 EACH CAP.SPRINK PO SCH ×2 (10:05→20:57)
[2018-04-19] MEDS: Aspirin 81 MG TAB.CHEW PO SCH (10:05)
[2018-04-19] MEDS: Metoprolol XL (24 HR) Succ 25 MG TAB.ER.24H PO SCH (10:05)
[2018-04-19] MEDS: *HR* LORazepam 1 MG TABLET PO SCH ×3 (10:05→20:57)
[2018-04-19] MEDS: Bumetanide 1 MG/4 ML VIAL IVP SCH ×2 (10:05→16:36)
[2018-04-19 10:06] LABS: Folate 7.2 ng/mL (3.0-16.0)
[2018-04-19] MEDS: Methyl Salicylate/Menthol 28 GM TUBE TP SCH ×2 (10:12→20:58)
--- NOTE | 2018-04-19 10:58 | Internal Med Progress Note ---
Date of Encounter: 04/19/18 Time of Encounter: 10:56 - Assessment and plan (1) Community acquired pneumonia Current Visit: Yes Status: Acute Assessment and plan: Improving. Will continue respiratory FQ and monitor. Qualifiers: Laterality: unspecified laterality Qualified Code(s): J18.9 - Pneumonia, unspecified organism (2) Acute exacerbation of congestive heart failure Current Visit: Yes Status: Acute Assessment and plan: Pt is clinically improving. Will continue IV diuresis for now. Low sodium diet. Daily weights and I/Os as ordered Qualifiers: Heart failure type: systolic Qualified Code(s): I50.23 - Acute on chronic systolic (congestive) heart failure (3) COPD exacerbation Current Visit: Yes Status: Acute Assessment and plan: Moderate. Will place on oral steroid and continue nebulizer treatments. - Time Spent With Patient 25 - 35 minutes - Subjective Interval history: Pt has done well overnight with no acute concerns. She states that she remains weak and tired. She continues to wheeze and remains short of breath. Cough has somewhat improved. She is tolerating po well. She is anticipating transitioning to swing bed for rehab. - Constitutional Vitals: Temp Pulse Resp BP Pulse Ox 98.7 F 71 16 104/59 94 04/19/18 07:09 04/19/18 07:09 04/19/18 09:21 04/19/18 07:09 04/19/18 09:21 Exam: Gen: Lying in bed, NAD HEENT: NC, AT Neck: Trachea midline, no mass Pulm: No respiratory distress, scattered rhonchi with expiratory wheeze noted throughout with fair air movement CV: Normal S1 and S2, RRR Abdomen: Soft, ND, NT Ext: No C/C/E Neuro: No appreciable motor/sensor deficits Skin: Warm and dry, no rash Psych: A&Ox3 Internal Medicine: Result - Labs CBC & Chem 7: 04/19/18 05:33 04/19/18 05:33 Labs: Short CBC 04/19/18 Range/Units 05:33 WBC 5.4 (4.3-11.1) K/mcL Hgb 10.0 L (11.5-15.4) g/dL Hct 32.1 L (35.3-44.9) % Plt Count 167 (140-400) K/mcL Neutrophils # 3.5 (1.6-8.9) K/mcL BMP 04/19/18 05:33 Sodium 140 Potassium 3.9 Chloride 104 Carbon Dioxide 32 H BUN 16 Creatinine 1.09 Glucose 89 Calcium 8.4 L Cardiac Enzymes 04/18/18 Range/Units 08:22 Troponin I 0.08 H* (< 0.04) ng/mL - ABG Interpretation ABG results: PT/INR, D-dimer PT 13.4 Seconds (9.4-12.1) H 04/17/18 20:33 Consult Discharge Plan - Plan Referrals: Florinda Falk MD [Primary Care Provider] - 1 week
[2018-04-19] MEDS: predniSONE 20 MG TABLET PO SCH (14:28)
[2018-04-19] MEDS: *HR* Heparin 5,000 UNIT/ML VIAL SQ SCH ×2 (14:28→22:37)
--- NOTE | 2018-04-19 21:22 | Electrocardiograph Report ---
[place] [id number] Test Date: 2018-04-17 Pat Name: Shabana Hill Department: EDP-15 Room: [facility] Gender: F Storeroom Attendant: : 1940 Requested By: Amy Romero Order Number: [id number] Reading MD: Nguyễn Saravia Measurements Intervals [place] Rate: 141 P: TX: 150 QRS: -46 QRSD: 85 T: 51 QT: 351 QTc: 538 Interpretive Statements Sinus tachycardia Left anterior fascicular block Left ventricular hypertrophy Prolonged QT interval Electronically Signed On 04-19-2018 21:21:00 EST by Nguyễn Saravia
[2018-04-19] MEDS ORDERED: Levofloxacin 500 MG/100 ML 500 MG/100 ML BAG IVPB SCH (22:00)
[2018-04-20 05:05] LABS: Basophils % 0.2 %; Hematocrit 32.1 % (35.3-44.9); Hemoglobin 10.3 g/dL (11.5-15.4); Immature Granulocytes % 0.6 % (0-4); Lymphocytes # 0.4 K/mcL (0.6-4.6); Lymphocytes % 8.8 %; Mean Corpuscular HGB Conc 32.1 g/dL (31.6-35.5); Mean Corpuscular Hemoglobin 28.9 pg (28.0-33.3); Mean Corpuscular Volume 89.9 fL (83.0-100.0); Mean Platelet Volume 10.2 fL (9.4-12.4); Monocytes # 0.3 K/mcL (0.0-1.3); Monocytes % 6.4 %; Neutrophils # 4.2 K/mcL (1.6-8.9); Platelet Count 185 K/mcL (140-400); Red Blood Count 3.57 M/mcL (3.82-4.97); Red Cell Distribution Width 12.5 % (11.5-14.5)
[2018-04-20 05:26] LABS: Albumin 3.2 g/dL (3.5-5.7); Calcium 8.7 mg/dL (8.6-10.3); Phosphorous 3.2 mg/dL (2.7-4.5)
[2018-04-20] MEDS: *HR* Heparin 5,000 UNIT/ML VIAL SQ SCH ×3 (07:00→20:05)
[2018-04-20] MEDS: Budesonide/Formoterol 160/4.5 1 PUFF INH IH SCH ×2 (09:23→21:14)
[2018-04-20] MEDS: Bumetanide 1 MG/4 ML VIAL IVP SCH (09:38)
[2018-04-20] MEDS: *HR* LORazepam 1 MG TABLET PO SCH ×3 (09:39→20:02)
[2018-04-20] MEDS: Lactobacillus 1 EACH CAP.SPRINK PO SCH ×2 (09:39→20:02)
[2018-04-20] MEDS: Aspirin 81 MG TAB.CHEW PO SCH (09:39)
[2018-04-20] MEDS: predniSONE 20 MG TABLET PO SCH (09:40)
[2018-04-20] MEDS: Metoprolol XL (24 HR) Succ 25 MG TAB.ER.24H PO SCH (09:41)
[2018-04-20] MEDS: Methyl Salicylate/Menthol 28 GM TUBE TP SCH ×2 (09:41→20:03)
--- NOTE | 2018-04-20 11:26 | Internal Med Progress Note ---
Date of Encounter: 04/20/18 Time of Encounter: 11:15 - Assessment and plan (1) Community acquired pneumonia Current Visit: Yes Status: Acute Assessment and plan: April 20. Continue Levaquin and lactobacillus. Qualifiers: Laterality: unspecified laterality Qualified Code(s): J18.9 - Pneumonia, unspecified organism (2) Congestive heart failure Current Visit: Yes Status: Chronic Assessment and plan: April 20. Continue higher dose Toprol. Discontinue lisinopril because of worsening azotemia. Reduce dose of Bumex. Qualifiers: Heart failure type: combined systolic and diastolic Heart failure chronicity: acute on chronic Qualified Code(s): I50.43 - Acute on chronic combined systolic (congestive) and diastolic (congestive) heart failure (3) Cardiomyopathy Current Visit: No Status: Chronic Assessment and plan: April 20. As above Qualifiers: Cardiomyopathy type: other Qualified Code(s): I42.8 - Other cardiomyopathies (4) Anemia Current Visit: Yes Status: Acute Assessment and plan: April 20. Anemia testing showed iron 34, transferrin saturation 13%, transferrin 191, ferritin 35, B12 269, and folate 7.2. Aspirin will be held and she will be started on ferrous sulfate with ascorbic acid. Qualifiers: Anemia type: unspecified type Qualified Code(s): D64.9 - Anemia, unspecified (5) COPD (chronic obstructive pulmonary disease) Current Visit: Yes Status: Chronic Assessment and plan: April 20. Continue Symbicort with prn albuterol nebs. Continue pneumonia t reatment as above. Qualifiers: COPD type: unspecified COPD Qualified Code(s): J44.9 - Chronic obstructive pulmonary disease, unspecified (6) Weakness Current Visit: Yes Status: Acute Assessment and plan: April 20. PT and OT evaluations will be ordered. - Subjective Interval history: April 20. She has no new complaints. She feels she has improved but is still weak. She questions if swing bed may be necessary to help her function better in the home. - Constitutional Vitals: Temp Pulse Resp BP Pulse Ox 98.0 F 80 14 121/74 97 04/20/18 11:13 04/20/18 11:13 04/20/18 11:13 04/20/18 11:13 04/20/18 11:13 Exam: She is resting comfortably in bed and appears in no acute distress. Her affect is bright and cheerful. I reviewed her medications and lab results. Internal Medicine: Result - Labs CBC & Chem 7: 04/20/18 04:25 04/20/18 04:25 Labs: Short CBC 04/20/18 Range/Units 04:25 WBC 5.0 (4.3-11.1) K/mcL Hgb 10.3 L (11.5-15.4) g/dL Hct 32.1 L (35.3-44.9) % Plt Count 185 (140-400) K/mcL Neutrophils # 4.2 (1.6-8.9) K/mcL BMP 04/20/18 04:25 Sodium 137 Potassium 4.0 Chloride 101 Carbon Dioxide 30 H BUN 29 H Creatinine 1.29 H Glucose 149 H Calcium 8.7 Liver Function 04/20/18 Range/Units 04:25 Albumin 3.2 L (3.5-5.7) g/dL - ABG Interpretation ABG results: PT/INR, D-dimer PT 13.4 Seconds (9.4-12.1) H 04/17/18 20:33 Consult Discharge Plan - Plan Referrals: Florinda Falk MD [Primary Care Provider] - 1 week
[2018-04-21] MEDS ORDERED: Mag Hydrox/Al Hydrox/Simeth 30 ML UDC PO PRN (02:24)
[2018-04-21 05:41] LABS: Hematocrit 29.7 % (35.3-44.9); Hemoglobin 9.7 g/dL (11.5-15.4); Immature Granulocytes % 0.3 % (0-4); Lymphocytes % 10.9 %; Mean Corpuscular HGB Conc 32.7 g/dL (31.6-35.5); Mean Corpuscular Hemoglobin 29.4 pg (28.0-33.3); Mean Platelet Volume 10.2 fL (9.4-12.4); Monocytes # 0.7 K/mcL (0.0-1.3); Monocytes % 7.2 %; Platelet Count 177 K/mcL (140-400); Red Cell Distribution Width 12.4 % (11.5-14.5); Segmented Neutrophils % 81.6 %
[2018-04-21 05:48] LABS: Neutrophils # 7.3 K/mcL (1.6-8.9)
[2018-04-21] MEDS: *HR* Heparin 5,000 UNIT/ML VIAL SQ SCH (06:09)
[2018-04-21 06:14] LABS: Calcium 8.7 mg/dL (8.6-10.3); Potassium 4.2 mEq/L (3.5-5.1)
[2018-04-21] MEDS ORDERED: Ascorbic Acid 500 MG TABLET PO SCH (06:30)
[2018-04-21] MEDS: Lactobacillus 1 EACH CAP.SPRINK PO SCH (09:21)
[2018-04-21] MEDS: *HR* LORazepam 1 MG TABLET PO SCH (09:21)
[2018-04-21] MEDS: Metoprolol XL (24 HR) Succ 25 MG TAB.ER.24H PO SCH (09:22)
[2018-04-21] MEDS: Methyl Salicylate/Menthol 28 GM TUBE TP SCH (09:22)
[2018-04-21] MEDS: Budesonide/Formoterol 160/4.5 1 PUFF INH IH SCH (09:25)
--- NOTE | 2018-04-21 11:46 | Discharge Summary ---
Date of Encounter: 04/21/18 Time of Encounter: 11:35 - Discharge Diagnosis (1) Community acquired pneumonia Priority: Primary Status: Acute Qualifiers: Laterality: unspecified laterality Qualified Code(s): J18.9 - Pneumonia, unspecified organism (2) Congestive heart failure Priority: Secondary Status: Chronic Qualifiers: Heart failure type: combined systolic and diastolic Heart failure chronicity: acute on chronic Qualified Code(s): I50.43 - Acute on chronic combined systolic (congestive) and diastolic (congestive) heart failure (3) Cardiomyopathy Priority: Secondary Status: Chronic Qualifiers: Cardiomyopathy type: other Qualified Code(s): I42.8 - Other cardiomyopathies (4) Anemia Priority: Secondary Status: Acute Qualifiers: Anemia type: unspecified type Qualified Code(s): D64.9 - Anemia, unspecified (5) COPD (chronic obstructive pulmonary disease) Priority: Secondary Status: Chronic Qualifiers: COPD type: unspecified COPD Qualified Code(s): J44.9 - Chronic obstructive pulmonary disease, unspecified (6) Weakness Priority: Secondary Status: Acute Hospital course: Ms. Hill is a 77 year old female who came to emergency room stating she had one week history of increasing dyspnea. She reports cough productive of white sputum. She denies significant pain. She states she had a near syncopal episode at home yesterday. She came to emergency room and was evaluated and was felt to have exacerbation of COPD with CHF and possible pneumonia. She was admitted to [facility] floor for ongoing care needs. Initial orders were written by the emergency room physician. I saw her on April 18 and performed the history and physical. She was started empirically on Levaquin in emergency room. Lactobacillus was added. She had good clinical response and remained afebrile during her hospital stay. WBC remained normal with varying left shift on differential. She will remain off antibiotic and probiotic at this time. Heart failure medications were adjusted and BN peptide decreased to 1311 by day of discharge. She will continue on present medication regimen in swing bed. Anemia testing showed iron 34, transferrin saturation 13%, transferrin 191, ferritin 35, B12 169, and folate 7.2. Ferrous sulfate with ascorbic acid was started and will be continued at discharge. Physical therapy and occupational therapy evaluations were done. It was felt patient would benefit from ongoing therapy in swing bed. - Time Spent with Patient Total time spent providing and/or coordinating discharge services: - Discharge Medications Prescriptions: Enoxaparin [Lovenox] 40 mg SQ DAILY 30 Days syr Home Medications: Atorvastatin Calcium [Lipitor] 40 mg PO DAILY 09/26/15 [History] Docusate Sodium [Dok] 100 mg PO DAILY 09/26/15 [History] LORazepam [Lorazepam] 2 mg PO TID 09/26/15 [History] Oxygen 2 l NS HS 09/26/15 [History] Acetaminophen [Tylenol Arthritis] 650 mg PO Q4-6H PRN #20 tablet.er 10/11/16 [Rx] BuPROPion [Wellbutrin] 75 mg PO DAILY 10/12/16 [History] Methyl Salicylate/Menthol [Bengay] 1 appl TP BID 10/13/16 [Rx] Fluticasone Propionate Nasal [Flonase] 1 - 2 spray NS DAILY PRN #1 bottle 12/20/17 [Rx] Albuterol Sulfate [Ventolin Hfa] 2 puff IH Q6H PRN 03/07/18 [History] Budesonide/Formoterol 160/4.5 [Symbicort 160/4.5] 2 puff IH BIDR 04/17/18 [History] Ascorbic Acid [Vitamin C] 500 mg PO 0630 tablet 04/21/18 [Rx] Enoxaparin [Lovenox] 40 mg SQ DAILY 30 Days syr 04/21/18 [Rx] Ferrous Sulfate 325 mg PO 0630 tablet 04/21/18 [Rx] Metoprolol XL (24 HR) Succ [Toprol Xl] 25 mg PO DAILY tab.er.24h 04/21/18 [Rx] Allergies/Adverse Reactions: Allergy/AdvReac Type Severity Reaction Status Date / Time atenolol Allergy See Verified 12/20/17 14:18 Comments Penicillins Allergy Swelling Verified 12/20/17 14:18 of Lip/Tongue/Throat tramadol Allergy See Verified 12/20/17 14:18 Comments acetaminophen [From Vicodin] AdvReac Nausea Verified 12/20/17 14:18 diazepam [From Valium] AdvReac Nausea Verified 12/20/17 14:18 hydrocodone [From Vicodin] AdvReac Nausea Verified 12/20/17 14:18 Date of admission: 04/18/18 13:54 Primary care physician: Florinda Falk MD Consults: 04/17/18 23:03 Consult to Cardiac Rehabilitation-Phase1 [CONS] Routine Comment: Reason for Consult: heart failure Call Completed: Yes Consult to Nurse Navigator [CONS] Routine Comment: Consult to Nurse Navigator [CONS] Routine Comment: Consult to Director Of Infection Control [CONS] Routine Reason for SW Consult: dc planning 04/17/18 23:40 Consult to Nutrition [CONS] Routine Comment: Consulting Provider: NUTRITION Reason for Dietary Consult: MST Score 04/20/18 11:32 Consult to Occupational Therapy [CONS] Routine Comment: Evaluate, develop and implement POC Reason for Consult: Weakness Does patient have active BEDREST order?: No Is patient medically & hemodynamically stable?: Yes Patient assessed for mobility or mobilized this visit?: Yes Consult to Physical Therapy [CONS] Routine Comment: Evaluate, develop and implement POC Reason for Consult: Weakness Does patient have active BEDREST order?: No Is patient medically & hemodynamically stable?: Yes Patient assessed for mobility or mobilized this visit?: Yes - Constitutional Vitals: Temp Pulse Resp BP Pulse Ox 98.1 F 84 18 132/85 93 04/21/18 07:02 04/21/18 07:02 04/21/18 07:02 04/21/18 07:02 04/21/18 07:02 - Patient Status Disposition: Transfer Hospital Swing Bed Condition: Fair - Discharge Instructions - Diet and Activity Activity: as per physical therapy Diet: regular diet
[2018-04-21 13:35] VITALS: BP 138/76
== END 2018-04-21 11:54 | disposition other institution (70) | DRG 291 ==
LOC: EMEROOPIK 20:01 → INPPIK 20:01
PROVIDERS: ADMIT Internal Medicine; ATTEND Internal Medicine

== ENCOUNTER 2018-04-21 13:41 | Inpatient (IN) ==
[2018-04-21] MEDS ORDERED: Fluticasone Propionate Nasal 50 MCG/SPRAY BOTTLE NS PRN (14:36)
[2018-04-21] MEDS: *HR* LORazepam 1 MG TABLET PO SCH ×2 (15:55→20:10)
[2018-04-21] MEDS: Methyl Salicylate/Menthol 28 GM TUBE TP SCH (20:10)
[2018-04-21] MEDS ORDERED: NON-FORMULARY MEDICATION 1 EACH EACH (Oxygen [Oxygen] 2 L) NS SCH (21:00)
[2018-04-21] MEDS: Budesonide/Formoterol 160/4.5 1 PUFF INH IH SCH (21:44)
[2018-04-22] MEDS: Ascorbic Acid 500 MG TABLET PO SCH (06:27)
[2018-04-22] MEDS: *HR* Enoxaparin 40 MG/0.4 ML SYRINGE SQ SCH (09:27)
[2018-04-22] MEDS: Metoprolol XL (24 HR) Succ 25 MG TAB.ER.24H PO SCH (09:29)
[2018-04-22] MEDS: *HR* LORazepam 1 MG TABLET PO SCH ×3 (09:30→21:29)
[2018-04-22] MEDS: Methyl Salicylate/Menthol 28 GM TUBE TP SCH ×2 (09:32→21:20)
[2018-04-22] MEDS: Budesonide/Formoterol 160/4.5 1 PUFF INH IH SCH ×2 (09:47→22:05)
[2018-04-23] MEDS: Ascorbic Acid 500 MG TABLET PO SCH (05:44)
[2018-04-23] MEDS: Budesonide/Formoterol 160/4.5 1 PUFF INH IH SCH ×2 (09:58→22:01)
[2018-04-23] MEDS: Acetaminophen 325 MG TABLET PO PRN ×2 (11:00→22:21)
[2018-04-23] MEDS: *HR* LORazepam 1 MG TABLET PO SCH ×3 (11:00→20:37)
[2018-04-23] MEDS: Metoprolol XL (24 HR) Succ 25 MG TAB.ER.24H PO SCH (11:01)
[2018-04-23] MEDS: Methyl Salicylate/Menthol 28 GM TUBE TP SCH ×2 (11:01→20:39)
--- NOTE | 2018-04-23 18:07 | Internal Med Progress Note ---
Date of Encounter: 04/23/18 Time of Encounter: 18:00 - Assessment and plan (1) Congestive heart failure Current Visit: No Status: Chronic Assessment and plan: April 23. Echo 03/09/2018 showed LVEF of 45% with E/A ratio 0.5. Continue Toprol. Recheck labs in a.m. Qualifiers: Heart failure type: combined systolic and diastolic Heart failure chronicity: acute on chronic Qualified Code(s): I50.43 - Acute on chronic combined systolic (congestive) and diastolic (congestive) heart failure (2) Anemia Current Visit: No Status: Acute Assessment and plan: April 23. Anemia testing showed iron 34, transferrin saturation 13%, transferrin 191, ferritin 35, B12 269, and folate 7.2. Continue ferrous sulfate and ascorbic acid supplement. Qualifiers: Anemia type: unspecified type Qualified Code(s): D64.9 - Anemia, unspecified (3) Weakness Current Visit: No Status: Acute Assessment and plan: April 23. Continue PT and OT intervention. - Subjective Interval history: April 23. She was hospitalized in acute-care at [facility] April 17- after p resenting with pneumonia. She received antibiotics with good response and antibiotics were not ordered to continue in swing bed. She had PT and OT interventions. It was felt to benefit from swing bed stay. She has no new complaints. - Constitutional Vitals: Temp Pulse Resp BP Pulse Ox 99.1 F 84 14 109/70 95 04/22/18 18:32 04/23/18 07:00 04/23/18 09:58 04/23/18 07:00 04/23/18 09:58 Exam: She is resting comfortably in bed and appears in no acute distress. Her affect is bright and cheerful. I reviewed her medications and lab results. Consult Discharge Plan - Plan Referrals: NONE,PCP [Primary Care Provider] - 1 week
[2018-04-23] MEDS: *HR* Enoxaparin 40 MG/0.4 ML SYRINGE SQ SCH (20:57)
[2018-04-24] MEDS: Ascorbic Acid 500 MG TABLET PO SCH (05:38)
[2018-04-24 06:03] LABS: Basophils % 0.6 %; Eosinophils # 0.3 K/mcL (0.0-0.6); Hematocrit 30.7 % (35.3-44.9); Hemoglobin 9.7 g/dL (11.5-15.4); Immature Granulocytes % 0.2 % (0-4); Lymphocytes # 1.4 K/mcL (0.6-4.6); Lymphocytes % 27.4 %; Mean Corpuscular HGB Conc 31.6 g/dL (31.6-35.5); Mean Corpuscular Hemoglobin 28.8 pg (28.0-33.3); Mean Corpuscular Volume 91.1 fL (83.0-100.0); Mean Platelet Volume 10.1 fL (9.4-12.4); Monocytes # 0.6 K/mcL (0.0-1.3); Monocytes % 11.8 %; Neutrophils # 2.8 K/mcL (1.6-8.9); Platelet Count 168 K/mcL (140-400); Red Blood Count 3.37 M/mcL (3.82-4.97)
[2018-04-24 06:25] LABS: BUN/Creatinine Ratio 26 (6-26); Blood Urea Nitrogen 25 mg/dL (8-23); Calcium 8.3 mg/dL (8.6-10.3); Carbon Dioxide 29 mEq/L (23-29); Chloride 106 mEq/L (98-107); Glucose 90 mg/dL (70-105); Osmolality,Calculated 294 (280-300); Potassium 4.4 mEq/L (3.5-5.1); Sodium 140 mEq/L (136-145); eGFR For Non-African Americans 57 (> 60)
[2018-04-24] MEDS: *HR* LORazepam 1 MG TABLET PO SCH ×3 (08:43→21:39)
[2018-04-24] MEDS: Metoprolol XL (24 HR) Succ 25 MG TAB.ER.24H PO SCH (08:44)
[2018-04-24] MEDS: Methyl Salicylate/Menthol 28 GM TUBE TP SCH ×2 (08:59→21:43)
[2018-04-24] MEDS: *HR* Enoxaparin 30 MG/0.3 ML SYRINGE SQ SCH (10:00)
[2018-04-24] MEDS: Budesonide/Formoterol 160/4.5 1 PUFF INH IH SCH ×2 (10:26→22:35)
[2018-04-25] MEDS: Ascorbic Acid 500 MG TABLET PO SCH (07:22)
[2018-04-25] MEDS: *HR* LORazepam 1 MG TABLET PO SCH ×3 (10:01→22:25)
[2018-04-25] MEDS: *HR* Enoxaparin 30 MG/0.3 ML SYRINGE SQ SCH (10:01)
[2018-04-25] MEDS: Methyl Salicylate/Menthol 28 GM TUBE TP SCH ×2 (10:02→22:26)
[2018-04-25] MEDS: Metoprolol XL (24 HR) Succ 25 MG TAB.ER.24H PO SCH (10:02)
[2018-04-25] MEDS: Budesonide/Formoterol 160/4.5 1 PUFF INH IH SCH ×3 (11:39→23:03)
--- NOTE | 2018-04-25 15:07 | Internal Med Progress Note ---
Date of Encounter: 04/25/18 Time of Encounter: 14:55 - Assessment and plan (1) Congestive heart failure Current Visit: No Status: Chronic Assessment and plan: April 23. Echo 03/09/2018 showed LVEF of 45% with E/A ratio 0.5. Continue Toprol. Recheck labs in a.m. Qualifiers: Heart failure type: combined systolic and diastolic Heart failure chronicity: acute on chronic Qualified Code(s): I50.43 - Acute on chronic combined systolic (congestive) and diastolic (congestive) heart failure (2) Anemia Current Visit: No Status: Acute Assessment and plan: April 23. Anemia testing showed iron 34, transferrin saturation 13%, transferrin 191, ferritin 35, B12 269, and folate 7.2. Continue ferrous sulfate and ascorbic acid supplement. Qualifiers: Anemia type: unspecified type Qualified Code(s): D64.9 - Anemia, unspecified (3) Weakness Current Visit: No Status: Acute Assessment and plan: April 23. Continue PT and OT intervention. (4) Paroxysmal atrial fibrillation Current Visit: No Status: Chronic Assessment and plan: April 25. OAC was not started during her March 2018 hospitalization at [facility] because of frequent falling. Start low-dose aspirin and monitor hemoglobin. - Subjective Interval history: April 23. She was hospitalized in acute-care at [facility] April 17 after presenting with pneumonia. She received antibiotics with good response and antibiotics were not ordered to continue in swing bed. She had PT and OT interv entions. It was felt to benefit from swing bed stay. She has no new complaints. April 25. She has no new complaints. - Constitutional Vitals: Temp Pulse Resp BP Pulse Ox 98.4 F 104 18 130/75 96 04/25/18 14:17 04/25/18 14:17 04/25/18 14:17 04/25/18 14:17 04/25/18 14:17 Exam: She is resting comfortably in bed and appears in no acute distress. Lungs show no wheezing. (She stated she was wheezing). Heart is irregularly irregular with rate approximately 80/m. Her left chest wall has no palpable mass where she claims she feels a mass. I reviewed her medications and lab results. Internal Medicine: Result - Labs CBC & Chem 7: 04/24/18 05:40 04/24/18 05:40 Consult Discharge Plan - Plan Referrals: NONE,PCP [Primary Care Provider] - 1 week (Rosalie Director at [facility] Appt. Saturday04/28/18 @ 3:30PM Need to bring: Social Security Card, Insurance Card, Photo ID, Proof of Address, Proof of household income )
[2018-04-26] MEDS: Ascorbic Acid 500 MG TABLET PO SCH (05:33)
[2018-04-26] MEDS: Metoprolol XL (24 HR) Succ 25 MG TAB.ER.24H PO SCH (10:38)
[2018-04-26] MEDS: *HR* LORazepam 1 MG TABLET PO SCH ×3 (10:39→20:00)
[2018-04-26] MEDS: *HR* Enoxaparin 30 MG/0.3 ML SYRINGE SQ SCH (10:39)
[2018-04-26] MEDS: Aspirin 81 MG TAB.CHEW PO SCH (10:39)
[2018-04-26] MEDS: Methyl Salicylate/Menthol 28 GM TUBE TP SCH ×2 (10:43→20:01)
[2018-04-26] MEDS: Budesonide/Formoterol 160/4.5 1 PUFF INH IH SCH ×2 (10:51→21:47)
[2018-04-27] MEDS: *HR* Enoxaparin 30 MG/0.3 ML SYRINGE SQ SCH (10:29)
[2018-04-27] MEDS: *HR* LORazepam 1 MG TABLET PO SCH ×3 (10:31→21:14)
[2018-04-27] MEDS: Aspirin 81 MG TAB.CHEW PO SCH (10:31)
[2018-04-27] MEDS: Ascorbic Acid 500 MG TABLET PO SCH (10:31)
[2018-04-27] MEDS: Methyl Salicylate/Menthol 28 GM TUBE TP SCH ×2 (10:32→21:14)
[2018-04-27] MEDS: Metoprolol XL (24 HR) Succ 25 MG TAB.ER.24H PO SCH (10:32)
[2018-04-27] MEDS: Budesonide/Formoterol 160/4.5 1 PUFF INH IH SCH ×2 (10:49→21:41)
[2018-04-28] MEDS ORDERED: *HR* Enoxaparin 40 MG/0.4 ML SYRINGE SQ SCH (09:00)
[2018-04-28] MEDS: *HR* LORazepam 1 MG TABLET PO SCH ×3 (09:23→21:28)
[2018-04-28] MEDS: Metoprolol XL (24 HR) Succ 25 MG TAB.ER.24H PO SCH (09:24)
[2018-04-28] MEDS: Ascorbic Acid 500 MG TABLET PO SCH (09:25)
[2018-04-28] MEDS: Methyl Salicylate/Menthol 28 GM TUBE TP SCH ×2 (09:25→21:30)
[2018-04-28] MEDS: Aspirin 81 MG TAB.CHEW PO SCH (09:25)
[2018-04-28] MEDS: Budesonide/Formoterol 160/4.5 1 PUFF INH IH SCH ×2 (10:40→23:19)
--- NOTE | 2018-04-28 17:10 | Internal Med Progress Note ---
Date of Encounter: 04/28/18 Time of Encounter: 16:55 - Assessment and plan (1) Congestive heart failure Current Visit: No Status: Chronic Assessment and plan: April 23. Echo 03/09/2018 showed LVEF of 45% with E/A ratio 0.5. Continue Toprol. Recheck labs in a.m. April 28. Continue present regimen. Recheck labs in a.m. Qualifiers: Heart failure type: combined systolic and diastolic Heart failure chronicity: acute on chronic Qualified Code(s): I50.43 - Acute on chronic combined systolic (congestive) and diastolic (congestive) heart failure (2) Anemia Current Visit: No Status: Acute Assessment and plan: April 23. Anemia testing showed iron 34, transferrin saturation 13%, transferrin 191, ferritin 35, B12 269, and folate 7.2. Continue ferrous sulfate and ascorbic acid supplement. April 28. Recheck labs in a.m. Qualifiers: Anemia type: unspecified type Qualified Code(s): D64.9 - Anemia, unspecified (3) Weakness Current Visit: No Status: Acute Assessment and plan: April 23. Continue PT and OT intervention. (4) Paroxysmal atrial fibrillation Current Visit: No Status: Chronic Assessment and plan: April 25. OAC was not started during her March 2018 hospitalization at [facility] because of frequent falling. Start low-dose aspirin and monitor hemoglobin. April 28. Ambulation appears stable with decreased risk of falling. Discontinue aspirin and start Xarelto. - Subjective Interval history: April 23. She was hospitalized in acute-care at [facility] April 17- after presenting with pneumonia. She received antibiotics with good response and antibiotics were not ordered to continue in swing bed. She had PT and OT interventions. It was felt to benefit from swing bed stay. She has no new complaints. April 25. She has no new complaints. April 28. She has no new complaints and feels better - Constitutional Vitals: Temp Pulse Resp BP Pulse Ox 97.8 F 73 16 124/73 98 04/28/18 07:08 04/28/18 07:08 04/28/18 10:40 04/28/18 07:08 04/28/18 10:40 Exam: She is resting comfortably in bed and appears in no acute distress. Her affect is bright and cheerful. I reviewed her medications and past lab results. Internal Medicine: Result - Labs CBC & Chem 7: 04/24/18 05:40 04/24/18 05:40 Consult Discharge Plan - Plan Referrals: NONE,PCP [Primary Care Provider] - 1 week (Rosalie Director at [facility] Appt. Saturday04/28/18 @ 3:30PM Need to bring: Social Security Card, Insurance Card, Photo ID, Proof of Address, Proof of household income )
[2018-04-29 05:25] LABS: Basophils % 0.6 %; Eosinophils # 0.2 K/mcL (0.0-0.6); Eosinophils % 4.3 %; Hematocrit 32.6 % (35.3-44.9); Hemoglobin 10.4 g/dL (11.5-15.4); Immature Granulocytes % 0.2 % (0-4); Lymphocytes # 1.2 K/mcL (0.6-4.6); Lymphocytes % 22.3 %; Mean Corpuscular HGB Conc 31.9 g/dL (31.6-35.5); Mean Corpuscular Hemoglobin 29.2 pg (28.0-33.3); Mean Corpuscular Volume 91.6 fL (83.0-100.0); Mean Platelet Volume 9.9 fL (9.4-12.4); Monocytes # 0.4 K/mcL (0.0-1.3); Monocytes % 8.2 %; Neutrophils # 3.4 K/mcL (1.6-8.9); Platelet Count 173 K/mcL (140-400); Red Blood Count 3.56 M/mcL (3.82-4.97); Red Cell Distribution Width 13.2 % (11.5-14.5); Segmented Neutrophils % 64.4 %
[2018-04-29 05:44] LABS: BUN/Creatinine Ratio 23 (6-26); Blood Urea Nitrogen 22 mg/dL (8-23); Calcium 8.7 mg/dL (8.6-10.3); Carbon Dioxide 31 mEq/L (23-29); Chloride 105 mEq/L (98-107); Glucose 88 mg/dL (70-105); Osmolality,Calculated 293 (280-300); Potassium 4.6 mEq/L (3.5-5.1); Sodium 140 mEq/L (136-145); eGFR For Non-African Americans 57 (> 60)
[2018-04-29] MEDS: Ascorbic Acid 500 MG TABLET PO SCH (06:48)
[2018-04-29] MEDS: *HR* LORazepam 1 MG TABLET PO SCH ×3 (10:24→20:40)
[2018-04-29] MEDS: Metoprolol XL (24 HR) Succ 25 MG TAB.ER.24H PO SCH (10:25)
[2018-04-29] MEDS: Methyl Salicylate/Menthol 28 GM TUBE TP SCH ×2 (10:26→20:40)
[2018-04-29] MEDS: Budesonide/Formoterol 160/4.5 1 PUFF INH IH SCH ×2 (11:23→22:50)
[2018-04-29] MEDS: *HR* Rivaroxaban 15 MG TABLET PO SCH (15:51)
--- NOTE | 2018-04-29 17:23 | Internal Med Progress Note ---
Date of Encounter: 04/29/18 Time of Encounter: 14:15 - Assessment and plan (1) Congestive heart failure Current Visit: No Status: Chronic Assessment and plan: April 23. Echo 03/09/2018 showed LVEF of 45% with E/A ratio 0.5. Continue Toprol. Recheck labs in a.m. April 28. Continue present regimen. Recheck labs in a.m. April 29. BN peptide has risen to 1305. Will start low-dose Bumex and Imdur. Qualifiers: Heart failure type: combined systolic and diastolic Heart failure chronicity: acute on chronic Qualified Code(s): I50.43 - Acute on chronic combined systolic (congestive) and diastolic (congestive) heart failure (2) Anemia Current Visit: No Status: Acute Assessment and plan: April 23. Anemia testing showed iron 34, transferrin saturation 13%, transferrin 191, ferritin 35, B12 269, and folate 7.2. Continue ferrous sulfate and ascorbic acid supplement. April 28. Recheck labs in a.m. April 29. Hemoglobin improved to 10.4. Continue to monitor periodically. Qualifiers: Anemia type: unspecified type Qualified Code(s): D64.9 - Anemia, unspecified (3) Weakness Current Visit: No Status: Acute Assessment and plan: April 23. Continue PT and OT intervention. (4) Paroxysmal atrial fibrillation Current Visit: No Status: Chronic Assessment and plan: April 25. OAC was not started during her March 2018 hospitalization at [facility] because of frequent falling. Start low-dose aspirin and monitor hemoglobin. April 28. Ambulation appears stable with decreased risk of falling. Discontinue aspirin and start Xarelto. - Subjective Interval history: April 23. She was hospitalized in acute-care at [facility] April 17 after presenting with pneumonia. She received antibiotics with good response and antibiotics were not ordered to continue in swing bed. She had PT and OT interventions. It was felt to benefit from swing bed stay. She has no new complaints. April 25. She has no new complaints. April 28. She has no new complaints and feels better - Constitutional Vitals: Temp Pulse Resp BP Pulse Ox 98.2 F 79 16 102/62 97 04/29/18 07:00 04/29/18 07:00 04/29/18 07:00 04/29/18 07:00 04/29/18 07:00 Exam: She is standing in the hallway appears in no acute distress. Her affect is overall cheerful. She did not seem dyspneic following significant distance ambulation with her walker. I reviewed her medications and lab results. Internal Medicine: Result - Labs CBC & Chem 7: 04/29/18 04:13 04/29/18 04:13 Labs: Short CBC 04/29/18 Range/Units 04:13 WBC 5.3 (4.3-11.1) K/mcL Hgb 10.4 L (11.5-15.4) g/dL Hct 32.6 L (35.3-44.9) % Plt Count 173 (140-400) K/mcL Neutrophils # 3.4 (1.6-8.9) K/mcL BMP 04/29/18 04:13 Sodium 140 Potassium 4.6 Chloride 105 Carbon Dioxide 31 H BUN 22 Creatinine 0.95 Glucose 88 Calcium 8.7 Consult Discharge Plan - Plan Referrals: NONE,PCP [Primary Care Provider] - 1 week (Rosalie Director at [facility] Appt. Saturday04/28/18 @ 3:30PM Need to bring: Social Security Card, Insurance Card, Photo ID, Proof of Address, Proof of household income )
[2018-04-30] MEDS: Ascorbic Acid 500 MG TABLET PO SCH (06:44)
[2018-04-30] MEDS: Budesonide/Formoterol 160/4.5 1 PUFF INH IH SCH ×2 (09:22→22:12)
[2018-04-30] MEDS: Bumetanide 1 MG TABLET PO SCH (10:12)
[2018-04-30] MEDS: *HR* LORazepam 1 MG TABLET PO SCH ×3 (10:12→20:11)
[2018-04-30] MEDS: Isosorbide MONOnitrate (24 HR) 30 MG TAB.ER.24H PO SCH (10:12)
[2018-04-30] MEDS: Methyl Salicylate/Menthol 28 GM TUBE TP SCH ×2 (10:13→20:17)
[2018-04-30] MEDS: Metoprolol XL (24 HR) Succ 25 MG TAB.ER.24H PO SCH (10:13)
[2018-04-30] MEDS: *HR* Rivaroxaban 15 MG TABLET PO SCH (16:43)
[2018-05-01] MEDS: Ascorbic Acid 500 MG TABLET PO SCH (06:21)
[2018-05-01] MEDS: Bumetanide 1 MG TABLET PO SCH (08:08)
[2018-05-01] MEDS: Metoprolol XL (24 HR) Succ 25 MG TAB.ER.24H PO SCH (08:08)
[2018-05-01] MEDS: Isosorbide MONOnitrate (24 HR) 30 MG TAB.ER.24H PO SCH (08:08)
[2018-05-01] MEDS: *HR* LORazepam 1 MG TABLET PO SCH ×3 (08:09→20:55)
[2018-05-01] MEDS: Budesonide/Formoterol 160/4.5 1 PUFF INH IH SCH ×2 (09:48→22:06)
[2018-05-01] MEDS: Methyl Salicylate/Menthol 28 GM TUBE TP SCH ×2 (11:34→20:55)
[2018-05-01] MEDS: *HR* Rivaroxaban 15 MG TABLET PO SCH (18:27)
[2018-05-02] MEDS: Ascorbic Acid 500 MG TABLET PO SCH (05:53)
[2018-05-02] MEDS: Bumetanide 1 MG TABLET PO SCH (06:07)
[2018-05-02] MEDS: *HR* LORazepam 1 MG TABLET PO SCH ×3 (06:08→21:24)
[2018-05-02] MEDS: Isosorbide MONOnitrate (24 HR) 30 MG TAB.ER.24H PO SCH (06:08)
[2018-05-02] MEDS: Metoprolol XL (24 HR) Succ 25 MG TAB.ER.24H PO SCH (06:09)
[2018-05-02] MEDS: Methyl Salicylate/Menthol 28 GM TUBE TP SCH ×2 (06:36→21:25)
[2018-05-02] MEDS: Budesonide/Formoterol 160/4.5 1 PUFF INH IH SCH ×2 (10:14→23:04)
[2018-05-02] MEDS: *HR* Rivaroxaban 15 MG TABLET PO SCH (16:37)
[2018-05-03] MEDS: Ascorbic Acid 500 MG TABLET PO SCH (06:16)
[2018-05-03] MEDS: *HR* LORazepam 1 MG TABLET PO SCH ×3 (08:40→21:15)
[2018-05-03] MEDS: Bumetanide 1 MG TABLET PO SCH (08:40)
[2018-05-03] MEDS: Methyl Salicylate/Menthol 28 GM TUBE TP SCH ×2 (08:41→21:16)
[2018-05-03] MEDS: Metoprolol XL (24 HR) Succ 25 MG TAB.ER.24H PO SCH (08:41)
[2018-05-03] MEDS: Isosorbide MONOnitrate (24 HR) 30 MG TAB.ER.24H PO SCH (08:41)
[2018-05-03] MEDS: Budesonide/Formoterol 160/4.5 1 PUFF INH IH SCH ×2 (09:56→21:49)
[2018-05-03] MEDS: *HR* Rivaroxaban 15 MG TABLET PO SCH (16:52)
[2018-05-04] MEDS: Ascorbic Acid 500 MG TABLET PO SCH (05:50)
[2018-05-04 06:36] LABS: Calcium 8.7 mg/dL (8.6-10.3); Potassium 4.2 mEq/L (3.5-5.1)
[2018-05-04 06:56] LABS: Basophils % 0.5 %; Eosinophils # 0.2 K/mcL (0.0-0.6); Eosinophils % 3.7 %; Hematocrit 32.8 % (35.3-44.9); Hemoglobin 10.6 g/dL (11.5-15.4); Immature Granulocytes % 0.4 % (0-4); Lymphocytes # 1.4 K/mcL (0.6-4.6); Lymphocytes % 25.1 %; Mean Corpuscular HGB Conc 32.3 g/dL (31.6-35.5); Mean Corpuscular Volume 89.6 fL (83.0-100.0); Mean Platelet Volume 9.9 fL (9.4-12.4); Monocytes # 0.4 K/mcL (0.0-1.3); Monocytes % 7.4 %; Neutrophils # 3.6 K/mcL (1.6-8.9); Platelet Count 183 K/mcL (140-400); Red Blood Count 3.66 M/mcL (3.82-4.97); Red Cell Distribution Width 13.5 % (11.5-14.5); Segmented Neutrophils % 62.9 %
[2018-05-04] MEDS: Bumetanide 1 MG TABLET PO SCH (07:59)
[2018-05-04] MEDS: *HR* LORazepam 1 MG TABLET PO SCH ×3 (07:59→20:48)
[2018-05-04] MEDS: Isosorbide MONOnitrate (24 HR) 30 MG TAB.ER.24H PO SCH (08:00)
[2018-05-04] MEDS: Metoprolol XL (24 HR) Succ 25 MG TAB.ER.24H PO SCH (08:00)
[2018-05-04] MEDS: Methyl Salicylate/Menthol 28 GM TUBE TP SCH ×2 (08:01→20:49)
[2018-05-04] MEDS: Budesonide/Formoterol 160/4.5 1 PUFF INH IH SCH ×2 (09:20→22:44)
--- NOTE | 2018-05-04 11:49 | Internal Med Progress Note ---
Date of Encounter: 05/04/18 Time of Encounter: 11:40 - Assessment and plan (1) Congestive heart failure Current Visit: No Status: Chronic Assessment and plan: April 23. Echo 03/09/2018 showed LVEF of 45% with E/A ratio 0.5. Continue Toprol. Recheck labs in a.m. April 28. Continue present regimen. Recheck labs in a.m. April 29. BN peptide has risen to 1305. Will start low-dose Bumex and Imdur. May 04. BN peptide has decreased to 463. BUN and creatinine have risen to 32 and 1.11 respectively with estimated GFR 47. Decrease Bumex to every other day. Continue Toprol and Imdur at present doses. Qualifiers: Heart failure type: combined systolic and diastolic Heart failure chronicity: acute on chronic Qualified Code(s): I50.43 - Acute on chronic combined systolic (congestive) and diastolic (congestive) heart failure (2) Anemia Current Visit: No Status: Acute Assessment and plan: April 23. Anemia testing showed iron 34, transferrin saturation 13%, transferrin 191, ferritin 35, B12 269, and folate 7.2. Continue ferrous sulfate and ascorbic acid supplement. April 28. Recheck labs in a.m. April 29. Hemoglobin improved to 10.4. Continue to monitor periodically. Qualifiers: Anemia type: unspecified type Qualified Code(s): D64.9 - Anemia, unspec ified (3) Weakness Current Visit: No Status: Acute Assessment and plan: April 23. Continue PT and OT intervention. (4) Paroxysmal atrial fibrillation Current Visit: No Status: Chronic Assessment and plan: April 25. OAC was not started during her March [address] [facility] because of frequent falling. Start low-dose aspirin and monitor hemoglobin. April 28. Ambulation appears stable with decreased risk of falling. Discontinue aspirin and start Xarelto. - Subjective Interval history: April 23. She was hospitalized in acute-care at [facility] April 17- after presenting with pneumonia. She received antibiotics with good response and antibiotics were not ordered to continue in swing bed. She had PT and OT interventions. It was felt to benefit from swing bed stay. She has no new complaints. April 25. She has no new complaints. April 28. She has no new complaints and feels better May 04. She has no new complaints. She reports the [employer] facilities project manager told her at the May 02 office visit she would need AICD. I cannot find documentation to verify this. - Constitutional Vitals: Temp Pulse Resp BP Pulse Ox 97.8 F 78 18 103/63 90 05/04/18 06:32 05/04/18 06:32 05/04/18 09:21 05/04/18 06:32 05/04/18 09:21 Exam: She is resting comfortably in bed and appears in no acute distress. Her affect is overall cheerful. I reviewed her medications and lab results. Internal Medicine: Result - Labs CBC & Chem 7: 05/04/18 05:35 05/04/18 05:35 Labs: Short CBC 05/04/18 Range/Units 05:35 WBC 5.7 (4.3-11.1) K/mcL Hgb 10.6 L (11.5-15.4) g/dL Hct 32.8 L (35.3-44.9) % Plt Count 183 (140-400) K/mcL Neutrophils # 3.6 (1.6-8.9) K/mcL BMP 05/04/18 05:35 Sodium 138 Potassium 4.2 Chloride 106 Carbon Dioxide 26 BUN 32 H Creatinine 1.11 Glucose 96 Calcium 8.7 Consult Discharge Plan - Plan Referrals: NONE,PCP [Primary Care Provider] - 1 week (Rosalie Director at [facility] Appt. Saturday04/28/18 @ 3:30PM Need to bring: Social Security Card, Insurance Card, Photo ID, Proof of Address, Proof of household income )
[2018-05-04] MEDS: *HR* Rivaroxaban 15 MG TABLET PO SCH (15:49)
[2018-05-05] MEDS: Ascorbic Acid 500 MG TABLET PO SCH (05:52)
[2018-05-05] MEDS: *HR* LORazepam 1 MG TABLET PO SCH ×3 (07:49→21:22)
[2018-05-05] MEDS: Metoprolol XL (24 HR) Succ 25 MG TAB.ER.24H PO SCH (07:50)
[2018-05-05] MEDS: Isosorbide MONOnitrate (24 HR) 30 MG TAB.ER.24H PO SCH (07:50)
[2018-05-05] MEDS: Methyl Salicylate/Menthol 28 GM TUBE TP SCH ×2 (07:51→21:48)
[2018-05-05] MEDS: Budesonide/Formoterol 160/4.5 1 PUFF INH IH SCH ×2 (10:42→21:58)
[2018-05-05] MEDS: *HR* Rivaroxaban 15 MG TABLET PO SCH (16:01)
[2018-05-06 06:33] VITALS: BP 118/66
[2018-05-06] MEDS: Ascorbic Acid 500 MG TABLET PO SCH (06:34)
[2018-05-06] MEDS: *HR* LORazepam 1 MG TABLET PO SCH (08:16)
[2018-05-06] MEDS: Isosorbide MONOnitrate (24 HR) 30 MG TAB.ER.24H PO SCH (08:16)
[2018-05-06] MEDS: Methyl Salicylate/Menthol 28 GM TUBE TP SCH (08:17)
[2018-05-06] MEDS: Metoprolol XL (24 HR) Succ 25 MG TAB.ER.24H PO SCH (08:17)
[2018-05-06] MEDS ORDERED: Bumetanide 1 MG TABLET PO SCH (09:00)
[2018-05-06] MEDS: Budesonide/Formoterol 160/4.5 1 PUFF INH IH SCH (10:12)
--- NOTE | 2018-05-06 11:06 | Discharge Summary ---
Date of Encounter: 05/06/18 Time of Encounter: 10:55 - Discharge Diagnosis (1) Congestive heart failure Priority: Primary Status: Chronic Qualifiers: Heart failure type: combined systolic and diastolic Heart failure chronicity: acute on chronic Qualified Code(s): I50.43 - Acute on chronic combined systolic (congestive) and diastolic (congestive) heart failure (2) Anemia Priority: Secondary Status: Acute Qualifiers: Anemia type: unspecified type Qualified Code(s): D64.9 - Anemia, unspecified (3) Weakness Priority: Secondary Status: Acute (4) Paroxysmal atrial fibrillation Priority: Secondary Status: Chronic Hospital course: Ms. Hill is a 77 year old female who was hospitalized in acute-care at [facility] April 17- after presenting with pneumonia. She received antibiotics with good response and antibiotics were not ordered to continue in swing bed. She had PT and OT interventions. It was felt she would benefit from swing bed stay. She continued to have physical therapy and occupational therapy in swing bed with satisfactory progress. Hemoglobin improved to 10.6 on May 04. BN peptide decreased to 463 on May 04. She was started on Xarelto for paroxysmal atrial fibrillation which was tolerated well. She saw U grinding wheel dresser 05/02/2018 and was told she qualified for AICD placement. This will be done in a few weeks' time. On May 06 word was received from her insurance that she had been approved to go to [facility] for ongoing therapy needs. She will follow with me there. - Time Spent with Patient Total time spent providing and/or coordinating discharge services: - Discharge Medications Prescriptions: New Bumetanide [Bumex] 0.5 mg PO Q48H tablet Isosorbide MONOnitrate (24 HR) [Imdur] 30 mg PO DAILY tab.er.24h Rivaroxaban [Xarelto] 15 mg PO 1700 tablet Continue Oxygen 2 l NS HS Atorvastatin Calcium [Lipitor] 40 mg PO DAILY Docusate Sodium [Dok] 100 mg PO DAILY Fluticasone Propionate Nasal [Flonase] 1 - 2 spray NS DAILY PRN #1 bottle PRN Reason: Congestion Albuterol Sulfate [Ventolin Hfa] 2 puff IH Q6H PRN PRN Reason: Dyspnea BuPROPion [Wellbutrin] 75 mg PO DAILY Methyl Salicylate/Menthol [Bengay] 1 appl TP BID Budesonide/Formoterol 160/4.5 [Symbicort 160/4.5] 2 puff IH BIDR Ascorbic Acid [Vitamin C] 500 mg PO 0630 tablet Ferrous Sulfate 325 mg PO 0630 tablet Metoprolol XL (24 HR) Succ [Toprol Xl] 25 mg PO DAILY tab.er.24h LORazepam [Lorazepam] 2 mg PO TID 30 Days #90 tablet Changed Acetaminophen [Tylenol Arthritis] 650 mg PO Q6H PRN 365 Days tablet.er PRN Reason: Pain Discontinued Enoxaparin [Lovenox] 40 mg SQ DAILY 30 Days syr Home Medications: Atorvastatin Calcium [Lipitor] 40 mg PO DAILY 09/26/15 [History] Docusate Sodium [Dok] 100 mg PO DAILY 09/26/15 [History] Oxygen 2 l NS HS 09/26/15 [History] BuPROPion [Wellbutrin] 75 mg PO DAILY 10/12/16 [History] Methyl Salicylate/Menthol [Bengay] 1 appl TP BID 10/13/16 [Rx] Fluticasone Propionate Nasal [Flonase] 1 - 2 spray NS DAILY PRN #1 bottle 12/20/17 [Rx] Albuterol Sulfate [Ventolin Hfa] 2 puff IH Q6H PRN 03/07/18 [History] Budesonide/Formoterol 160/4.5 [Symbicort 160/4.5] 2 puff IH BIDR 04/17/18 [History] Ascorbic Acid [Vitamin C] 500 mg PO 0630 tablet 04/21/18 [Rx] Ferrous Sulfate 325 mg PO 0630 tablet 04/21/18 [Rx] Metoprolol XL (24 HR) Succ [Toprol Xl] 25 mg PO DAILY tab.er.24h 04/21/18 [Rx] Acetaminophen [Tylenol Arthritis] 650 mg PO Q6H PRN 365 Days tablet.er 05/06/18 [Rx] Bumetanide [Bumex] 0.5 mg PO Q48H tablet 05/06/18 [Rx] Isosorbide MONOnitrate (24 HR) [Imdur] 30 mg PO DAILY tab.er.24h 05/06/18 [Rx] LORazepam [Lorazepam] 2 mg PO TID 30 Days #90 tablet 05/06/18 [Rx] Rivaroxaban [Xarelto] 15 mg PO 1700 tablet 05/06/18 [Rx] Allergies/Adverse Reactions: Allergy/AdvReac Type Severity Reaction Status Date / Time atenolol Allergy See Verified 12/20/17 14:18 Comments Penicillins Allergy Swelling Verified 12/20/17 14:18 of Lip/Tongue/Throat tramadol Allergy See Verified 12/20/17 14:18 Comments acetaminophen [From Vicodin] AdvReac Nausea Verified 12/20/17 14:18 diazepam [From Valium] AdvReac Nausea Verified 12/20/17 14:18 hydrocodone [From Vicodin] AdvReac Nausea Verified 12/20/17 14:18 Date of admission: 04/21/18 14:29 Primary care physician: PCP NONE Consults: 04/21/18 19:33 Consult to Occupational Therapy [CONS] Routine Comment: Evaluate, develop, and implement plan of care. Reason for Consult: Evaluate, develop, and implement plan of care. Does patient have active BEDREST order?: No Is patient medically & hemodynamically stable?: Yes Patient assessed for mobility or mobilized this visit?: No Consult to Physical Therapy [CONS] Routine Comment: Evaluate, develop, and implement plan of care. Reason for Consult: Evaluate, develop, and implement plan of care. Does patient have active BEDREST order?: No Is patient medically & hemodynamically stable?: Yes Patient assessed for mobility or mobilized this visit?: No Consult to Signal Technician [CONS] Routine Reason for SW Consult: discharge planning - Constitutional Vitals: Temp Pulse Resp BP Pulse Ox 97.8 F 74 18 118/66 99 05/06/18 06:31 05/06/18 06:31 05/06/18 06:31 05/06/18 06:31 05/06/18 06:31 - Patient Status Disposition: Transfer SNF - Discharge Instructions - Diet and Activity Activity: as per physical therapy Diet: low fat, low cholesterol, low salt diet
--- NOTE | 2018-05-06 11:15 | Physician Discharge Referral ---
ExtendedCare Referral Info Transfer To: [facility] Provider in Charge: Davis Provider in Charge after Transfer: PCP Justin) Institutional Level of Care: Skilled - Diagnosis (1) Congestive heart failure Priority: Primary Status: Chronic (2) Anemia Priority: Secondary Status: Acute (3) Weakness Priority: Secondary Status: Acute (4) Paroxysmal atrial fibrillation Priority: Secondary Status: Chronic Prognosis: Good Aware of Diagnosis: Patient Aware of Prognosis: Patient - Transfer Medications Prescriptions: LORazepam [Lorazepam] 2 mg PO TID 30 Days #90 tablet Home Medications: Atorvastatin Calcium [Lipitor] 40 mg PO DAILY 09/26/15 [History] Docusate Sodium [Dok] 100 mg PO DAILY 09/26/15 [History] Oxygen 2 l NS HS 09/26/15 [History] BuPROPion [Wellbutrin] 75 mg PO DAILY 10/12/16 [History] Methyl Salicylate/Menthol [Bengay] 1 appl TP BID 10/13/16 [Rx] Fluticasone Propionate Nasal [Flonase] 1 - 2 spray NS DAILY PRN #1 bottle 12/20/17 [Rx] Albuterol Sulfate [Ventolin Hfa] 2 puff IH Q6H PRN 03/07/18 [History] Budesonide/Formoterol 160/4.5 [Symbicort 160/4.5] 2 puff IH BIDR 04/17/18 [History] Ascorbic Acid [Vitamin C] 500 mg PO 0630 tablet 04/21/18 [Rx] Ferrous Sulfate 325 mg PO 0630 tablet 04/21/18 [Rx] Metoprolol XL (24 HR) Succ [Toprol Xl] 25 mg PO DAILY tab.er.24h 04/21/18 [Rx] Acetaminophen [Tylenol Arthritis] 650 mg PO Q6H PRN 365 Days tablet.er 05/06/18 [Rx] Bumetanide [Bumex] 0.5 mg PO Q48H tablet 05/06/18 [Rx] Isosorbide MONOnitrate (24 HR) [Imdur] 30 mg PO DAILY tab.er.24h 05/06/18 [Rx] LORazepam [Lorazepam] 2 mg PO TID 30 Days #90 tablet 05/06/18 [Rx] Rivaroxaban [Xarelto] 15 mg PO 1700 tablet 05/06/18 [Rx] Allergies/Adverse Reactions: Allergy/AdvReac Type Severity Reaction Status Date / Time atenolol Allergy See Verified 12/20/17 14:18 Comments Penicillins Allergy Swelling Verified 12/20/17 14:18 of Lip/Tongue/Throat tramadol Allergy See Verified 12/20/17 14:18 Comments acetaminophen [From Vicodin] AdvReac Nausea Verified 12/20/17 14:18 diazepam [From Valium] AdvReac Nausea Verified 12/20/17 14:18 hydrocodone [From Vicodin] AdvReac Nausea Verified 12/20/17 14:18 - Respiratory Orders Smoking Cessation: Smoking cessation has been advised. For more information, call the [place] Tobacco Quit Line at 1-422-PPZZ-NOW. - Lab Orders Lab Orders: Other (include drug levels w/frequency) (CBC with differential, BMP, BNP peptide 1 week) - Mobility Orders Ambulate - Rehabiliation Orders Rehab Potential: Good Rehab Orders: Evaluation for Physical Therapy, Evaluation for Occupational Therapy CERTIFICATION: I certify that the transfer of the above named patient to an Extended Care Facility is necessary for the continuing treatment of the diagnosis listed. The above information is true and accurate reflection of patient's current condition. Confidential - Redisclosure prohibited without a patient's written consent.
== END 2018-05-06 12:25 | DRG 293 ==
LOC: INPPIK 14:29
PROVIDERS: ADMIT Internal Medicine; ATTEND Internal Medicine

== ENCOUNTER 2018-06-27 17:46 | Inpatient (IN) ==
--- NOTE | 2018-06-27 18:08 | Emergency Department Note ---
Disposition Clinical Impression: Congestive heart failure Qualifiers: Heart failure type: unspecified Heart failure chronicity: acute Qualified Code(s): I50.9 - Heart failure, unspecified Disposition: Admitted As Inpatient Referrals: Marcos Dwyer MD [Primary Care Provider] - Forms: ED Satisfaction Letter Time of Disposition: 20:26 SOB HPI - General Chief Complaint: ED Shortness of Breath/Dyspnea Stated Complaint: possible pneumonia Time Seen by Provider: 06/27/18 17:58 Source: patient, family Mode of arrival: private vehicle Limitations: no limitations Nursing Notes Reviewed: Yes Vital Signs Reviewed: Yes - History of Present Illness Pt Subjective Complaint: shortness of breath Onset (ago): day(s) (A little bit more than 7 days) Severity: moderate Consistency/Duration: constant Improves with: upright position Worsens with: lying flat, exertion Known history of: congestive heart failure, recurrent pneumonia Associated symptoms: Reports: cough. Denies: chest pain Treatment prior to arrival: none Cough present: Yes Cough Frequency: Intermittent - Related Data Home Medications Medication Instructions Recorded Confirmed Atorvastatin Calcium [Lipitor] 40 mg PO DAILY 09/26/15 06/27/18 Docusate Sodium [Dok] 100 mg PO DAILY 09/26/15 06/27/18 Oxygen 2.5 l NS HS 09/26/15 06/27/18 BuPROPion [Wellbutrin] 75 mg PO BID 10/12/16 06/27/18 Budesonide/Formoterol 160/4.5 2 puff IH BIDR 04/17/18 06/27/18 [Symbicort 160/4.5] Albuterol Neb [AccuNeb] 0.63 mg IH Q6H PRN 06/27/18 06/27/18 Aspirin [Lo-Dose Aspirin EC] 81 mg PO DAILY 06/27/18 06/27/18 LORazepam [Lorazepam] 2 mg PO HS 06/27/18 06/27/18 Previous Rx's Medication Instructions Recorded Methyl Salicylate/Menthol [Bengay] 1 appl TP BID 10/13/16 Ascorbic Acid [Vitamin C] 500 mg PO 0630 tablet 04/21/18 Ferrous Sulfate 325 mg PO 0630 tablet 04/21/18 Metoprolol XL (24 HR) Succ [Toprol 25 mg PO DAILY tab.er.24h 04/21/18 Xl] Bumetanide [Bumex] 0.5 mg PO Q48H tablet 05/06/18 Isosorbide MONOnitrate (24 HR) 30 mg PO DAILY tab.er.24h 05/06/18 [Imdur] Rivaroxaban [Xarelto] 15 mg PO 1700 tablet 05/06/18 Allergies Allergy/AdvReac Type Severity Reaction Status Date / Time atenolol Allergy See Verified 06/27/18 17:47 Comments Penicillins Allergy Swelling Verified 06/27/18 17:47 of Lip/Tongue/Throat tramadol Allergy See Verified 06/27/18 17:47 Comments acetaminophen [From Vicodin] AdvReac Nausea Verified 06/27/18 17:47 diazepam [From Valium] AdvReac Nausea Verified 06/27/18 17:47 hydrocodone [From Vicodin] AdvReac Nausea Verified 06/27/18 17:47 All systems ED: reviewed and negative except as stated. Constitutional: Reports: chills ENT ED: Denies: ear pain, throat pain, congestion Cardiovascular: Denies: chest pain, palpitations Respiratory: Reports: cough, dyspnea Gastrointestinal: Denies: abdominal pain, diarrhea Integumentary: Denies: rash Neurological: Denies: headache Past Medical History - Past Medical History Attestation: Yes The following information was validated with the patient. Source: patient, old records reviewed, nursing notes reviewed Medical history: Reports: atrial fibrillation, COPD, CVA, GERD, hypertension Surgical history: Reports: , other Psychiatric history: Reports: anxiety, depression CHEMIST ORGANIC history: Reports: no CHEMIST ORGANIC history - Social History Smoking Status: Former smoker Smokeless Tobacco Status: No Alcohol use: Reports: none Drug use: Reports: none Physical Exam - General Limitations: no limitations General appearance: alert, in no apparent distress - Head Head exam: atraumatic, normocephalic, normal inspection - Eye Eye exam: Present: normal appearance, PERRL, EOMI. Absent: scleral icterus, conjunctival injection - ENT ENT exam: normal exam, normal oropharynx, mucous membranes moist, TM's normal bilaterally, normal external ear exam - Neck Neck exam: Present: normal inspection, full ROM - Chest Chest inspection: Present: normal inspection, symmetric chest wall rise. Absent: tenderness - Respiratory Respiratory exam: Present: normal lung sounds bilaterally. Absent: respiratory distress, wheezes - Cardiovascular Cardiovascular exam: Present: regular rate, normal rhythm, normal heart sounds - Abdominal Exam Abdominal exam: Present: soft, Non-Tender, normal bowel sounds - Extremities Exam Extremities exam: Present: normal inspection. Absent: pedal edema - Neurological Exam Neurological exam: Present: alert, oriented X3 - Psychiatric Psychiatric exam: Present: normal affect, normal mood - Skin Skin exam: Present: warm, dry. Absent: rash Course Course Narrative: Patient presents with shortness of breath is exertional and when she lies down. Physical exam is unremarkable. Her story does raise some concerns about CHF and possibly pneumonia. We will get a shortness of breath workup going. Dis position will be based on diagnostic results and reevaluation. - Reevaluation(s) Reevaluation #1: Workup seems consistent with congestive heart failure. Her story sounds like CHF. Chest x-ray shows some effusions and pulmonary arrest or congestion. I did a bedside ultrasound which showed no signs of pericardial effusion. There is no pneumonia. Troponin was little bit elevated. I spoke with the hospitalist, Dr. Cannon. Ordering admitted to the hospital with diuresis orders. We will repeat the troponin here in the department to make sure is not climbing significantly. Time: 20:25 Reevaluation #2: No change in troponin level. Patient will be admitted to the floor. Time: 21:54 - Consultations Consultation #1: Dr. Cannon, hospitalist. I discussed the case with the hospitalist and he accepted the patient for admission. Time: 20:10 Vital Signs Temperature 97.2 F L 06/27/18 17:47 Pulse Rate 117 06/27/18 17:47 Respiratory Rate 18 06/27/18 17:47 Blood Pressure 132/111 06/27/18 17:47 O2 Sat by Pulse Oximetry 95 06/27/18 17:47 Temperature 97.2 F L 06/27/18 17:47 Pulse Rate 90 06/27/18 19:38 Respiratory Rate 18 06/27/18 19:38 Blood Pressure 124/99 06/27/18 19:38 O2 Sat by Pulse Oximetry 97 06/27/18 19:38 Oxygen Delivery Oxygen Delivery Nasal Cannula Shortness of Breath/Dyspnea - Medical Records Medical records reviewed: Yes I reviewed the patient's medical records. - Lab Data Lab results reviewed: Yes I reviewed the patient's lab results. Result diagrams: 06/27/18 18:17 06/27/18 18:17 Lab Results 06/27/18 06/27/18 06/27/18 Range/Units 18:17 18:17 18:17 WBC 8.2 (4.3-11.1) K/mcL RBC 3.55 L (3.82-4.97) M/mcL Hgb 10.4 L (11.5-15.4) g/dL Hct 33.3 L (35.3-44.9) % MCV 93.8 (83.0-100.0) fL MCH 29.3 (28.0-33.3) pg MCHC 31.2 L (31.6-35.5) g/dL RDW 14.7 H (11.5-14.5) % Plt Count 166 (140-400) K/mcL MPV 10.6 (9.4-12.4) fL Immature Gran % 0.4 (0-4) % Seg Neutrophils % 71.3 % Lymphocytes % 17.7 % Monocytes % 10.4 % Eosinophils % 0.1 % Basophils % 0.1 % Neutrophils # 5.8 (1.6-8.9) K/mcL Lymphocytes # 1.4 (0.6-4.6) K/mcL Monocytes # 0.9 (0.0-1.3) K/mcL Eosinophils # 0.0 (0.0-0.6) K/mcL Basophils # 0.0 (0.0-0.2) K/mcL Sodium 141 (136-145) mEq/L Potassium 3.6 (3.5-5.1) mEq/L Chloride 105 (98-107) mEq/L Carbon Dioxide 28 (23-29) mEq/L BUN 36 H (8-23) mg/dL Creatinine 1.81 H (0.60-1.20) mg/dL Est GFR ( Amer) 33 L (> 60) Est GFR (Non-Af Amer) 27 L (> 60) BUN/Creatinine Ratio 20 (6-26) Glucose 130 H (70-105) mg/dL Calculated Osmolality 302 H (280-300) Calcium 8.9 (8.6-10.3) mg/dL Troponin I 0.06 H* (< 0.04) ng/mL B-Natriuretic Peptide > 5000 H (Less than 100) pg/mL Urine Color (Yellow) Urine Clarity (Clear) Urine pH (5.0-8.0) pH Units Ur Specific Normanna (1.010-1.025) Urine Protein (Neg-Trace) mg/dL Urine Glucose (UA) (Normal) mg/dL Urine Ketones (Negative) mg/dL Urine Blood (Negative) Urine Nitrite (Negative) Urine Bilirubin (Negative) Urine Urobilinogen (Normal) mg/dL Ur Leukocyte Esterase (Negative) Urine Microscopic WBC (0-3) per hpf Ur Squamous Epith Cells (None-Few) per lpf Urine Bacteria (None-Few) per hpf Ur Culture Indicated? (NO) 06/27/18 06/27/18 Range/Units 19:10 21:01 WBC (4.3-11.1) K/mcL RBC (3.82-4.97) M/mcL Hgb (11.5-15.4) g/dL Hct (35.3-44.9) % MCV (83.0-100.0) fL MCH (28.0-33.3) pg MCHC (31.6-35.5) g/dL RDW (11.5-14.5) % Plt Count (140-400) K/mcL MPV (9.4-12.4) fL Immature Gran % (0-4) % Seg Neutrophils % % Lymphocytes % % Monocytes % % Eosinophils % % Basophils % % Neutrophils # (1.6-8.9) K/mcL Lymphocytes # (0.6-4.6) K/mcL Monocytes # (0.0-1.3) K/mcL Eosinophils # (0.0-0.6) K/mcL Basophils # (0.0-0.2) K/mcL Sodium (136-145) mEq/L Potassium (3.5-5.1) mEq/L Chloride (98-107) mEq/L Carbon Dioxide (23-29) mEq/L BUN (8-23) mg/dL Creatinine (0.60-1.20) mg/dL Est GFR ( Amer) (> 60) Est GFR (Non-Af Amer) (> 60) BUN/Creatinine Ratio (6-26) Glucose (70-105) mg/dL Calculated Osmolality (280-300) Calcium (8.6-10.3) mg/dL Troponin I 0.06 H* (< 0.04) ng/mL B-Natriuretic Peptide (Less than 100) pg/mL Urine Color Yellow (Yellow) Urine Clarity Slightly Cloudy A (Clear) Urine pH 5.5 (5.0-8.0) pH Units Ur Specific Normanna 1.025 (1.010-1.025) Urine Protein 30 H (Neg-Trace) mg/dL Urine Glucose (UA) Normal (Normal) mg/dL Urine Ketones Negative (Negative) mg/dL Urine Blood Negative (Negative) Urine Nitrite Negative (Negative) Urine Bilirubin Negative (Negative) Urine Urobilinogen Normal (Normal) mg/dL Ur Leukocyte Esterase Small H (Negative) Urine Microscopic WBC 5-15 H (0-3) per hpf Ur Squamous Epith Cells Few (None-Few) per lpf Urine Bacteria Few (None-Few) per hpf Ur Culture Indicated? YES A (NO) - Radiology Data Radiology results reviewed: Yes I reviewed the patient's radiology results. - EKG Data EKG attestation: Yes I reviewed and interpreted this EKG. EKG results narrative: Twelve-lead EKG performed at 1804 p.m. Ordered, reviewed and to read by the physician shows sinus rhythm at a rate of 95. Normal axis. Good hour progression across corneum. Occasional PVC. Nonspecific T-wave abnormalities in the anterior lateral leads.
[2018-06-27 18:28] LABS: Basophils % 0.1 %; Eosinophils % 0.1 %; Hematocrit 33.3 % (35.3-44.9); Hemoglobin 10.4 g/dL (11.5-15.4); Immature Granulocytes % 0.4 % (0-4); Lymphocytes # 1.4 K/mcL (0.6-4.6); Lymphocytes % 17.7 %; Mean Corpuscular HGB Conc 31.2 g/dL (31.6-35.5); Mean Corpuscular Hemoglobin 29.3 pg (28.0-33.3); Mean Corpuscular Volume 93.8 fL (83.0-100.0); Mean Platelet Volume 10.6 fL (9.4-12.4); Monocytes # 0.9 K/mcL (0.0-1.3); Monocytes % 10.4 %; Neutrophils # 5.8 K/mcL (1.6-8.9); Platelet Count 166 K/mcL (140-400); Red Blood Count 3.55 M/mcL (3.82-4.97); Red Cell Distribution Width 14.7 % (11.5-14.5); Segmented Neutrophils % 71.3 %
[2018-06-27 18:43] LABS: Calcium 8.9 mg/dL (8.6-10.3); Potassium 3.6 mEq/L (3.5-5.1)
[2018-06-27 18:48] LABS: Troponin I 0.06 ng/mL (< 0.04)
[2018-06-27 19:21] LABS: Bilirubin,Urine Negative (Negative); Blood,Urine Negative (Negative); Clarity,Urine Slightly Cloudy (Clear); Color,Urine Yellow (Yellow); Glucose,Urine (UA) Normal (Normal); Ketones,Urine Negative (Negative); Leukocyte Esterase,Urine Small (Negative); Nitrite,Urine Negative (Negative); PH,Urine 5.5 pH Units (5.0-8.0); Protein,Urine 30 mg/dL (Neg-Trace); Specific Gravity,Urine 1.025 (1.010-1.025); Urobilinogen,Urine Normal (Normal)
[2018-06-27 19:32] LABS: Bacteria,Urine Few per hpf (None-Few); Squamous Epithelial Cell,Urine Few per lpf (None-Few)
[2018-06-27] MEDS ORDERED: Furosemide 40 MG/4 ML VIAL IVP ONE (23:28)
[2018-06-27] MEDS ORDERED: Naloxone 0.4 MG/ML INJ IVP PRN (23:28)
[2018-06-27] MEDS ORDERED: Bumetanide 1 MG TABLET PO SCH (23:28)
[2018-06-28] MEDS: Albuterol 2.5 MG/3 ML NEBULIZER IH PRN ×2 (00:38→09:29)
[2018-06-28] MEDS: Budesonide/Formoterol 160/4.5 1 PUFF INH IH SCH ×3 (00:38→22:49)
[2018-06-28] MEDS: *HR* LORazepam 1 MG TABLET PO SCH ×2 (00:41→21:06)
[2018-06-28] MEDS ORDERED: Isosorbide MONOnitrate (24 HR) 30 MG TAB.ER.24H PO SCH (09:00)
[2018-06-28] MEDS: Aspirin Enteric Coated 81 MG Tablet PO SCH (10:03)
[2018-06-28] MEDS: Metoprolol XL (24 HR) Succ 25 MG TAB.ER.24H PO SCH (10:03)
--- NOTE | 2018-06-28 14:50 | Internal Med History&Physical ---
Date of Encounter: 06/28/18 Time of Encounter: 14:20 Assessment and Plan (1) Acute exacerbation of congestive heart failure Current visit: No Status: Acute She was given IV Lasix in emergency room. Continue Toprol-XL and Imdur. Qualifiers: Heart failure type: systolic Qualified Code(s): I50.23 - Acute on chronic systolic (congestive) heart failure (2) HTN (hypertension) Current visit: No Status: Chronic Continue Bumex, Imdur, and Toprol-XL. Qualifiers: Hypertension type: essential hypertension Qualified Code(s): I10 - Essential (primary) hypertension (3) Paroxysmal atrial fibrillation Current visit: No Status: Chronic Continue Xarelto (4) UTI (urinary tract infection) Current visit: No Status: Acute Equivocal evidence. Urine culture has been ordered. Qualifiers: Urinary tract infection type: acute cystitis Hematuria presence: without hematuria Qualified Code(s): N30.00 - Acute cystitis without hematuria (5) Anemia Current visit: No Status: Acute Anemia testing will be repeated in a.m. Qualifiers: Anemia type: unspecified type Qualified Code(s): D64.9 - Anemia, unspecified (6) Anxiety Current visit: No Status: Chronic Continue lorazepam. Internal Medicine - H&P: HPI Chief complaint: Dyspnea Admitted From: Emergency Dept Plans for Post Hospital Care: Home History of present illness: Ms. Hill is a 77 year old female who came to emergency room complaining of increased dyspnea over the past 7-10 days. She reports no significant cough and no chest pain. She was evaluated in emergency room and was found to have evidence of heart failure. She was admitted to [facility] floor for ongoing care needs. She was hospitalized in acute-care and swing bed at [facility] May 2018. She had AICD placement a few weeks ago at [facility]. Cardiovascular history is significant otherwise for hypertension. She claims she had an FL in 2015. C 03/12/2018 showed LMCA free of disease, 25% stenosis in proximal LAD, 20% stenosis in mid LAD, 25% stenosis in mid RCA, and 65% stenosis in distal RCA. The circumflex and first marginal were free of disease. No intervention was done. Echocardiogram 03/09/2018 showed LVEF of 45%. There was indeterminate diastolic function reported. E/A ratio was 0.5. There was mild aortic regurgitation, mild tricuspid vegetation, mild pulmonic regurgitation, and mild to moderate mitral regurgitation. Interventricular septum and posterior wall thickness measurements was 0.88 and 0.5 cm respectively. She denies DVT or pulmonary embolus. Past Med Surg Social Fam HX - Past Medical History Medical history: atrial fibrillation, COPD, CVA, GERD, hypertension Additional medical history: IBS, emphysema Psychiatric history: anxiety, depression - Past Surgical History Surgical History: , other Additional surgical history: Jaw fx - Social History Smoking Status: Former smoker Smokeless Tobacco Status: No Alcohol use: none Drug use: none - Family History Mother Living Status: Hx Family Cardiac Disorders: Yes Hx Family Cancer: Yes Father Living Status: Hx Family Cardiac Disorders: Yes Hx Family GI Disorders: Yes Internal Medicine - H&P: Meds Atorvastatin Calcium [Lipitor] 40 mg PO DAILY 09/26/15 [History] Docusate Sodium [Dok] 100 mg PO DAILY 09/26/15 [History] Oxygen 2.5 l NS HS 09/26/15 [History] BuPROPion [Wellbutrin] 75 mg PO BID 10/12/16 [History] Methyl Salicylate/Menthol [Bengay] 1 appl TP BID 10/13/16 [Rx] Budesonide/Formoterol 160/4.5 [Symbicort 160/4.5] 2 puff IH BIDR 04/17/18 [History] Ascorbic Acid [Vitamin C] 500 mg PO 0630 tablet 04/21/18 [Rx] Ferrous Sulfate 325 mg PO 0630 tablet 04/21/18 [Rx] Metoprolol XL (24 HR) Succ [Toprol Xl] 25 mg PO DAILY tab.er.24h 04/21/18 [Rx] Bumetanide [Bumex] 0.5 mg PO Q48H tablet 05/06/18 [Rx] Isosorbide MONOnitrate (24 HR) [Imdur] 30 mg PO DAILY tab.er.24h 05/06/18 [Rx] Rivaroxaban [Xarelto] 15 mg PO 1700 tablet 05/06/18 [Rx] Albuterol Neb [AccuNeb] 0.63 mg IH Q6H PRN 06/27/18 [History] Aspirin [Lo-Dose Aspirin EC] 81 mg PO DAILY 06/27/18 [History] LORazepam [Lorazepam] 2 mg PO TID 06/27/18 [History] Allergy/AdvReac Type Severity Reaction Status Date / Time atenolol Allergy See Verified 06/27/18 17:47 Comments Penicillins Allergy Swelling Verified 06/27/18 17:47 of Lip/Tongue/Throat tramadol Allergy See Verified 06/27/18 17:47 Comments acetaminophen [From Vicodin] AdvReac Nausea Verified 06/27/18 17:47 diazepam [From Valium] AdvReac Nausea Verified 06/27/18 17:47 hydrocodone [From Vicodin] AdvReac Nausea Verified 06/27/18 17:47 All Systems PM: A 10-system review of systems was performed and is negative for pertinent findings except as documented above in the HPI. Review of systems: Review of systems from her April 2018 [facility] hospitalization were reviewed and revised as below. Gen.: Her weight has decreased from 60.594 kg on 10/13/2016 to 50.349 kg on admission now. Cardiovascular: As per history of present illness Respiratory: She smoked from age [age]. She claims diagnosis of COPD/emphysema and asthma. She uses oxygen 24/09. GI: She has IBS. She denies disorders of her liver gallbladder or exocrine pancreas : She denies hematuria dysuria or kidney stones Neurologic: She states she had a stroke in the past but only affected her left forehead/eyebrow movement. 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 She has arthritis but denies gout or other bone joint or muscle disorders. - Constitutional Vitals: Temp Pulse Resp BP Pulse Ox 98.8 F 90 18 113/72 96 06/28/18 07:30 06/28/18 10:01 06/28/18 09:29 06/28/18 10:01 06/28/18 10:01 Exam: Gen.: She is a well-developed well-nourished female lying in bed who appears in no acute distress HEENT: Head is atraumatic and normocephalic. Eyes: EOMI. There is no scleral icterus. Mouth: Mucosa is moist. Neck: Supple and nontender. There is no thyromegaly or adenopathy noted. Heart: Regular with rate approximately 120/m. No murmurs or gallops are heard. Lungs: No inspiratory crackles or expiratory wheezing heard. She has scattered egophony. Abdomen: Soft and nontender. No masses or guarding are noted. Extremities: There is no cyanosis edema or clubbing noted. Dorsalis pedis and posterior tibial pulses are trace palpable bilaterally. 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 Neurologic: Mental status: She is talkative and a good historian. Cranial nerves: Smile is symmetric. Forehead wrinkles bilaterally. Tongue protrudes midline. EOMI. Motor: There is no pronator drift. Cerebellar: Finger to nose is intact bilaterally. Skin: Warm and dry Internal Med - H&P Results - Labs CBC & Chem 7: 06/27/18 18:17 06/27/18 18:17 Labs: Short CBC 06/27/18 Range/Units 18:17 WBC 8.2 (4.3-11.1) K/mcL Hgb 10.4 L (11.5-15.4) g/dL Hct 33.3 L (35.3-44.9) % Plt Count 166 (140-400) K/mcL Neutrophils # 5.8 (1.6-8.9) K/mcL BMP 06/27/18 18:17 Sodium 141 Potassium 3.6 Chloride 105 Carbon Dioxide 28 BUN 36 H Creatinine 1.81 H Glucose 130 H Calcium 8.9 Cardiac Enzymes 06/27/18 06/27/18 06/28/18 Range/Units 18:17 21:01 00:54 Troponin I 0.06 H* 0.06 H* 0.06 H* (< 0.04) ng/mL 06/28/18 Range/Units 05:35 Troponin I 0.05 H* (< 0.04) ng/mL Urine 06/27/18 Range/Units 19:10 Urine Color Yellow (Yellow) Urine Clarity Slightly Cloudy A (Clear) Urine pH 5.5 (5.0-8.0) pH Units Ur Specific [place] 1.025 (1.010-1.025) Urine Protein 30 H (Neg-Trace) mg/dL Urine Glucose (UA) Normal (Normal) mg/dL - Impressions ITS Impressions Chest X-Ray 06/27/18 18:04 IMPRESSION: Pulmonary vascular congestion and small bilateral pleural effusions. D/ / Mathieu Nielsen MD / Mathieu Nielsen MD Interpreting Provider: Mathieu Nielsen MD
[2018-06-28] MEDS: *HR* Digoxin 0.125 MG TABLET PO SCH (17:08)
[2018-06-28] MEDS: *HR* Rivaroxaban 15 MG TABLET PO SCH (17:08)
[2018-06-29 05:50] LABS: Basophils % 0.3 %; Eosinophils # 0.1 K/mcL (0.0-0.6); Hematocrit 31.9 % (35.3-44.9); Hemoglobin 9.9 g/dL (11.5-15.4); Immature Granulocytes % 0.3 % (0-4); Lymphocytes # 1.4 K/mcL (0.6-4.6); Lymphocytes % 20.7 %; Mean Corpuscular Hemoglobin 28.7 pg (28.0-33.3); Mean Corpuscular Volume 92.5 fL (83.0-100.0); Mean Platelet Volume 10.4 fL (9.4-12.4); Monocytes # 0.6 K/mcL (0.0-1.3); Monocytes % 9.6 %; Neutrophils # 4.4 K/mcL (1.6-8.9); Platelet Count 163 K/mcL (140-400); Red Blood Count 3.45 M/mcL (3.82-4.97); Red Cell Distribution Width 14.8 % (11.5-14.5); Segmented Neutrophils % 67.1 %
[2018-06-29 06:15] LABS: Calcium 8.8 mg/dL (8.6-10.3); Potassium 3.9 mEq/L (3.5-5.1)
[2018-06-29] MEDS: Isosorbide MONOnitrate (24 HR) 30 MG TAB.ER.24H PO SCH (08:33)
[2018-06-29] MEDS: *HR* Digoxin 0.125 MG TABLET PO SCH (08:33)
[2018-06-29] MEDS: Bumetanide 1 MG TABLET PO SCH (08:33)
[2018-06-29] MEDS: Aspirin Enteric Coated 81 MG Tablet PO SCH (08:35)
[2018-06-29] MEDS: Metoprolol XL (24 HR) Succ 25 MG TAB.ER.24H PO SCH (08:35)
[2018-06-29] MEDS: Albuterol 2.5 MG/3 ML NEBULIZER IH PRN ×2 (08:43→21:05)
[2018-06-29] MEDS: Budesonide/Formoterol 160/4.5 1 PUFF INH IH SCH ×2 (08:45→21:05)
[2018-06-29 09:39] LABS: Folate 8.9 ng/mL (3.0-16.0)
--- NOTE | 2018-06-29 10:52 | Electrocardiograph Report ---
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
--- NOTE | 2018-06-29 11:05 | Electrocardiograph Report ---
[place] [address] Test Date: 2018-06-27 Pat Name: Shabana Hill Department: EDP-12 Room: [facility] Gender: F Nat Instructor: : 1940 Requested By: Jaime Meyer Order Number: [id number] Reading MD: Sis Sanchez Measurements Intervals [place] Rate: 95 P: 13 ID: [id number] QRS: -24 QRSD: 93 T: 137 QT: 343 QTc: 432 Interpretive Statements Sinus rhythm Ventricular premature complex Borderline left axis deviation Nonspecific T abnrm, anterolateral leads Electronically Signed On 06-29-2018 11:04:10 EDT by Sis Sanchez
--- NOTE | 2018-06-29 12:59 | Internal Med Progress Note ---
Date of Encounter: 06/29/18 Time of Encounter: 12:50 - Assessment and plan (1) Acute exacerbation of congestive heart failure Current Visit: No Status: Acute Assessment and plan: June 29. BN peptide decreased to 4003. Continue Toprol-XL, Imdur, Lanoxin, and Bumex Qualifiers: Heart failure type: systolic Qualified Code(s): I50.23 - Acute on chronic systolic (congestive) heart failure (2) HTN (hypertension) Current Visit: No Status: Chronic Assessment and plan: June 29. Continue Bumex, Imdur, and Toprol XL Qualifiers: Hypertension type: essential hypertension Qualified Code(s): I10 - Essential (primary) hypertension (3) Paroxysmal atrial fibrillation Current Visit: No Status: Chronic Assessment and plan: June 29. Continue Xarelto and Toprol (4) UTI (urinary tract infection) Current Visit: No Status: Acute Assessment and plan: June 29. Urine culture showed no growth. Antibiotics will not be given. Qualifiers: Urinary tract infection type: acute cystitis Hematuria presence: without hematuria Qualified Code(s): N30.00 - Acute cystitis without hematuria (5) Anemia Current Visit: No Status: Acute Assessment and plan: June 29. Anemia testing showed iron 25, transferrin saturation 8%, transferrin 229, ferritin 46, B12 207, and folate 8.9. She is not adequately absorbing oral ferrous sulfate and B12 at home. She will be given IV iron and dextran and a B12 injection IM. Qualifiers: Anemia type: unspecified type Qualified Code(s): D64.9 - Anemia, unspecified (6) Anxiety Current Visit: No Status: Chronic Assessment and plan: June 29. Continue lorazepam. - Subjective Interval history: June 29. She has no new complaints. - Constitutional Vitals: Temp Pulse Resp BP Pulse Ox 97.6 F 86 16 110/74 93 06/29/18 11:20 06/29/18 11:20 06/29/18 11:20 06/29/18 11:20 06/29/18 11:20 Exam: She is resting comfortably in bed and appears in no acute distress. Her affect is overall cheerful. Extremities show no pitting edema. I reviewed her medications and lab results. Internal Medicine: Result - Labs CBC & Chem 7: 06/29/18 05:10 06/29/18 05:10 Labs: Short CBC 04/28/19 Range/Units 05:10 WBC 6.6 (4.3-11.1) K/mcL Hgb 9.9 L (11.5-15.4) g/dL Hct 31.9 L (35.3-44.9) % Plt Count 163 (140-400) K/mcL Neutrophils # 4.4 (1.6-8.9) K/mcL BMP 06/29/18 05:10 Sodium 141 Potassium 3.9 Chloride 105 Carbon Dioxide 30 H BUN 41 H Creatinine 1.54 H Glucose 99 Calcium 8.8 Consult Discharge Plan - Plan Referrals: Marcos Dwyer MD [Primary Care Provider] - 1 week
[2018-06-29] MEDS ORDERED: Cyanocobalamin (B-12) 1,000 MCG/ML VIAL IM ONE (13:02)
[2018-06-29] MEDS ORDERED: SODIUM CHLORIDE 0.9% IVPB ONE (13:19)
[2018-06-29] MEDS ORDERED: IRON DEXTRAN COMPLEX IVPB ONE (13:19)
[2018-06-29] MEDS: *HR* Rivaroxaban 15 MG TABLET PO SCH (16:56)
[2018-06-29] MEDS: *HR* LORazepam 1 MG TABLET PO SCH (20:23)
[2018-06-30 07:26] LABS: Basophils % 0.5 %; Eosinophils # 0.2 K/mcL (0.0-0.6); Eosinophils % 2.7 %; Hematocrit 32.7 % (35.3-44.9); Hemoglobin 10.2 g/dL (11.5-15.4); Immature Granulocytes % 0.2 % (0-4); Lymphocytes # 1.5 K/mcL (0.6-4.6); Lymphocytes % 23.3 %; Mean Corpuscular HGB Conc 31.2 g/dL (31.6-35.5); Mean Corpuscular Hemoglobin 29.4 pg (28.0-33.3); Mean Corpuscular Volume 94.2 fL (83.0-100.0); Mean Platelet Volume 10.3 fL (9.4-12.4); Monocytes # 0.6 K/mcL (0.0-1.3); Monocytes % 9.7 %; Platelet Count 163 K/mcL (140-400); Red Blood Count 3.47 M/mcL (3.82-4.97); Red Cell Distribution Width 15.1 % (11.5-14.5); Segmented Neutrophils % 63.6 %
[2018-06-30] MEDS: Albuterol 2.5 MG/3 ML NEBULIZER IH PRN ×2 (08:12→22:17)
[2018-06-30 08:15] LABS: Potassium 4.1 mEq/L (3.5-5.1)
[2018-06-30] MEDS: Aspirin Enteric Coated 81 MG Tablet PO SCH (08:39)
[2018-06-30] MEDS: Bumetanide 1 MG TABLET PO SCH (08:39)
[2018-06-30] MEDS: Metoprolol XL (24 HR) Succ 25 MG TAB.ER.24H PO SCH (08:39)
[2018-06-30] MEDS: Isosorbide MONOnitrate (24 HR) 30 MG TAB.ER.24H PO SCH (08:39)
[2018-06-30] MEDS: *HR* LORazepam 1 MG TABLET PO SCH ×3 (08:39→20:47)
[2018-06-30] MEDS: *HR* Digoxin 0.125 MG TABLET PO SCH (08:39)
--- NOTE | 2018-06-30 09:59 | Internal Med Progress Note ---
Date of Encounter: 06/30/18 Time of Encounter: 09:50 - Assessment and plan (1) Acute exacerbation of congestive heart failure Current Visit: No Status: Acute Assessment and plan: June 29. BN peptide decreased to 4003. Continue Toprol-XL, Imdur, Lanoxin, and Bumex June 30. BN peptide further decreased to 3812. Increase Bumex and Imdur. Continue Toprol and Lanoxin. Anticipate discharge home tomorrow. Qualifiers: Heart failure type: systolic Qualified Code(s): I50.23 - Acute on chronic systolic (congestive) heart failure (2) HTN (hypertension) Current Visit: No Status: Chronic Assessment and plan: June 29. Continue Bumex, Imdur, and Toprol XL Qualifiers: Hypertension type: essential hypertension Qualified Code(s): I10 - Essential (primary) hypertension (3) Paroxysmal atrial fibrillation Current Visit: No Status: Chronic Assessment and plan: June 29. Continue Xarelto and Toprol (4) UTI (urinary tract infection) Current Visit: No Status: Acute Assessment and plan: June 29. Urine culture showed no growth. Antibiotics will not be given. Qualifiers: Urinary tract infection type: acute cystitis Hematuria presence: without hematuria Qualified Code(s): N30.00 - Acute cystitis without hematuria (5) Anemia Current Visit: No Status: Acute Assessment and plan: June 29. Anemia testing showed iron 25, transferrin saturation 8%, transferrin 229, ferritin 46, B12 207, and folate 8.9. She is not adequately absorbing oral ferrous sulfate and B12 at home. She will be given IV iron and dextran and a B12 injection IM. Qualifiers: Anemia type: unspecified type Qualified Code(s): D64.9 - Anemia, unspecified (6) Anxiety Current Visit: No Status: Chronic Assessment and plan: June 29. Continue lorazepam. - Subjective Interval history: June 29. She has no new complaints. June 30. She has no new complaints. She states she feels dyspneic. - Constitutional Vitals: Temp Pulse Resp BP Pulse Ox 97.8 F 87 122 128/91 93 06/30/18 06:30 06/30/18 03:57 06/30/18 06:30 06/30/18 06:30 06/30/18 03:57 Exam: She is resting comfortably in bed and appears in no acute distress. She is not dyspneic in conversation. Her affect is cheerful. Lungs show no wheezes or crackles. I reviewed her medications and lab results. Internal Medicine: Result - Labs CBC & Chem 7: 06/30/18 07:06 06/30/18 07:06 Labs: Short CBC 06/30/18 Range/Units 07:06 WBC 6.2 (4.3-11.1) K/mcL Hgb 10.2 L (11.5-15.4) g/dL Hct 32.7 L (35.3-44.9) % Plt Count 163 (140-400) K/mcL Neutrophils # 4.0 (1.6-8.9) K/mcL BMP 06/30/18 07:06 Sodium 142 Potassium 4.1 Chloride 105 Carbon Dioxide 30 H BUN 32 H Creatinine 1.31 H Glucose 93 Calcium 9.0 Consult Discharge Plan - Plan Referrals: Marcos Dwyer MD [Primary Care Provider] - 1 week
[2018-06-30] MEDS ORDERED: Isosorbide MONOnitrate (24 HR) 60 MG TAB.ER.24H PO ONE (10:15)
[2018-06-30] MEDS ORDERED: Bumetanide 1 MG TABLET PO ONE (10:15)
[2018-06-30] MEDS: Budesonide/Formoterol 160/4.5 1 PUFF INH IH SCH ×2 (10:21→22:18)
[2018-06-30] MEDS: *HR* Rivaroxaban 15 MG TABLET PO SCH (17:32)
[2018-07-01 06:35] VITALS: BP 130/82
[2018-07-01] MEDS ORDERED: Isosorbide MONOnitrate (24 HR) 60 MG TAB.ER.24H PO SCH (09:00)
[2018-07-01] MEDS ORDERED: Bumetanide 1 MG TABLET PO SCH (09:00)
[2018-07-01] MEDS: *HR* Digoxin 0.125 MG TABLET PO SCH (09:35)
[2018-07-01] MEDS: Aspirin Enteric Coated 81 MG Tablet PO SCH (09:35)
[2018-07-01] MEDS: *HR* LORazepam 1 MG TABLET PO SCH (09:35)
[2018-07-01] MEDS: Metoprolol XL (24 HR) Succ 25 MG TAB.ER.24H PO SCH (09:35)
--- NOTE | 2018-07-01 09:55 | Discharge Summary ---
Orders not resulted at time of discharge: Pending orders 06/27/18 18:17 Culture,Blood [] Stat Date of Encounter: 07/01/18 Time of Encounter: 09:45 - Discharge Diagnosis (1) Acute exacerbation of congestive heart failure Priority: Primary Status: Acute Qualifiers: Heart failure type: systolic Qualified Code(s): I50.23 - Acute on chronic systolic (congestive) heart failure (2) HTN (hypertension) Priority: Secondary Status: Chronic Qualifiers: Hypertension type: essential hypertension Qualified Code(s): I10 - Essential (primary) hypertension (3) Paroxysmal atrial fibrillation Priority: Secondary Status: Chronic (4) UTI (urinary tract infection) Priority: Secondary Status: Resolved Qualifiers: Urinary tract infection type: acute cystitis Hematuria presence: without hematuria Qualified Code(s): N30.00 - Acute cystitis without hematuria (5) Anemia Priority: Secondary Status: Acute Qualifiers: Anemia type: unspecified type Qualified Code(s): D64.9 - Anemia, unspecified (6) Anxiety Priority: Secondary Status: Chronic Hospital course: Ms. Hill is a 77 year old female who came to emergency room complaining of increased dyspnea over the past 7-10 days. She reports no significant cough and no chest pain. She was evaluated in emergency room and was found to have evidence of heart failure. She was admitted to [facility] floor for ongoing care needs. Initial orders were written by the emergency room physician. I saw her on June 28 and performed a history and physical. She was given IV Lasix in emergency room. Bumex dose was increased to 1 mg daily. Imdur dose was increased to 120 mg daily. She had good clinical response with decrease in BN peptide to 3506 by day of discharge. Anemia testing showed iron 25, transferrin saturation 8%, transferrin 229, ferritin 46, B12 207, and folate 8.9. She was given a B12 injection. She will continue oral B12 supplement at home. Her PCP can monitor B12 levels to determine if adequate absorption is occurring or if she will need ongoing B12 injections. She will continue oral ferrous sulfate with ascorbic acid at home and her PCP can monitor to see if adequate absorption is occurring or parenteral iron will need to be given. There were no other new problems and on July 01 she was stable for discharge home. She wished to follow with a provider in [place] and will see Natasha Neal CNP within 1 week. - Time Spent with Patient Total time spent providing and/or coordinating discharge services: - Discharge Medications Prescriptions: New Bumetanide [Bumex] 1 mg PO DAILY #30 tablet Isosorbide MONOnitrate (24 HR) [Imdur] 120 mg PO DAILY #60 tab.er.24h Digoxin [Lanoxin] 0.125 mg PO DAILY #30 tablet Continued Oxygen 2.5 l NS HS Atorvastatin Calcium [Lipitor] 40 mg PO DAILY Docusate Sodium [Dok] 100 mg PO DAILY BuPROPion [Wellbutrin] 75 mg PO BID Methyl Salicylate/Menthol [Bengay] 1 appl TP BID Budesonide/Formoterol 160/4.5 [Symbicort 160/4.5] 2 puff IH BIDR Ascorbic Acid [Vitamin C] 500 mg PO 0630 tablet Ferrous Sulfate 325 mg PO 0630 tablet Metoprolol XL (24 HR) Succ [Toprol Xl] 25 mg PO DAILY tab.er.24h Rivaroxaban [Xarelto] 15 mg PO 1700 tablet Aspirin [Lo-Dose Aspirin EC] 81 mg PO DAILY Albuterol Neb [AccuNeb] 0.63 mg IH Q6H PRN PRN Reason: Shortness Of Breath LORazepam [Lorazepam] 2 mg PO TID Discontinued Bumetanide [Bumex] 0.5 mg PO Q48H tablet Isosorbide MONOnitrate (24 HR) [Imdur] 30 mg PO DAILY tab.er.24h Home Medications: Atorvastatin Calcium [Lipitor] 40 mg PO DAILY 09/26/15 [History] Docusate Sodium [Dok] 100 mg PO DAILY 09/26/15 [History] Oxygen 2.5 l NS HS 09/26/15 [History] BuPROPion [Wellbutrin] 75 mg PO BID 10/12/16 [History] Methyl Salicylate/Menthol [Bengay] 1 appl TP BID 10/13/16 [Rx] Budesonide/Formoterol 160/4.5 [Symbicort 160/4.5] 2 puff IH BIDR 04/17/18 [History] Ascorbic Acid [Vitamin C] 500 mg PO 0630 tablet 04/21/18 [Rx] Ferrous Sulfate 325 mg PO 0630 tablet 04/21/18 [Rx] Metoprolol XL (24 HR) Succ [Toprol Xl] 25 mg PO DAILY tab.er.24h 04/21/18 [Rx] Rivaroxaban [Xarelto] 15 mg PO 1700 tablet 05/06/18 [Rx] Albuterol Neb [AccuNeb] 0.63 mg IH Q6H PRN 06/27/18 [History] Aspirin [Lo-Dose Aspirin EC] 81 mg PO DAILY 06/27/18 [History] LORazepam [Lorazepam] 2 mg PO TID 06/27/18 [History] Bumetanide [Bumex] 1 mg PO DAILY #30 tablet 07/01/18 [Rx] Digoxin [Lanoxin] 0.125 mg PO DAILY #30 tablet 07/01/18 [Rx] Isosorbide MONOnitrate (24 HR) [Imdur] 120 mg PO DAILY #60 tab.er.24h 07/01/18 [Rx] Allergies/Adverse Reactions: Allergy/AdvReac Type Severity Reaction Status Date / Time atenolol Allergy See Verified 06/27/18 17:47 Comments Penicillins Allergy Swelling Verified 06/27/18 17:47 of Lip/Tongue/Throat tramadol Allergy See Verified 06/27/18 17:47 Comments acetaminophen [From Vicodin] AdvReac Nausea Verified 06/27/18 17:47 diazepam [From Valium] AdvReac Nausea Verified 06/27/18 17:47 hydrocodone [From Vicodin] AdvReac Nausea Verified 06/27/18 17:47 Date of admission: 06/28/18 15:02 Primary care physician: Natasha Neal CNP - Constitutional Vitals: Temp Pulse Resp BP Pulse Ox 98.0 F 89 16 130/82 93 07/01/18 06:32 07/01/18 06:32 07/01/18 06:32 07/01/18 06:32 07/01/18 06:32 - Patient Status Disposition: Home, Self-Care - Discharge Instructions Follow Up With: Natasha Neal CNP [Advanced Practice Nurse] - 1 week - Diet and Activity Activity: wear oxygen at all times Diet: advance to your usual diet
[2018-07-01] MEDS: Albuterol 2.5 MG/3 ML NEBULIZER IH PRN (10:05)
[2018-07-01] MEDS: Budesonide/Formoterol 160/4.5 1 PUFF INH IH SCH (10:06)
== END 2018-07-01 12:55 | disposition home or self-care (01) | DRG 292 ==
LOC: EMEROOPIK 17:46 → INPPIK 17:46
PROVIDERS: ADMIT Internal Medicine; ATTEND Internal Medicine